=== PATIENT | female | born 1950 | race Caucasian/White ===

== ENCOUNTER 2017-04-11 08:47 | Outpatient (CLI) | payer MEDICARE, OTHER ==
--- NOTE | 2017-04-11 10:45 | CT ---
CT ABDOMEN WITH AND WITHOUT IV CONTRAST CT PELVIS WITH IV CONTRAST: Date: 04/11/17 HISTORY: Cirrhosis. Abdominal pain. Nausea, vomiting, and diarrhea. FINDINGS: Lung bases are clear. There are postop changes of cholecystectomy and vertical sleeve gastrectomy. Th e spleen, pancreas, adrenal glands, and right kidney are normal. A 2.6 cm cortical cyst is seen in th e left kidney. The liver demonstrates no evidence of mass or abnormal intrahepatic ductal dilatation. There is no ev idence of fatty infiltration of the liver. No free air, free fluid, or lymphadenopathy is seen in the abdomen or pelvis. There are vascular calc ifications without evidence of aneurysmal dilatation of the abdominal aorta. Degenerative changes are present in the spine. The small bowel loops are not abnormally dilated. There is sigmoid diverticulo sis. The patient is post hysterectomy. IMPRESSION: 1. No evidence of hepatic mass. 2. Left renal cyst. 3. Sigmoid diverticulosis. POS: [facility]
[2017-04-11] MEDS ORDERED: Iopamidol 370 76% 100 ML VIAL ONE (13:14)
== END 2017-04-11 08:48 | disposition home or self-care (01) ==
LOC: CT 08:47
PROVIDERS: ATTEND Internal Medicine Gastroenterology
DX: K74.60 Unspecified cirrhosis of liver (principal); N28.1 Cyst of kidney, acquired; K57.30 Diverticulosis of large intestine without perforation or abscess without bleeding
CPT/HCPCS: 74178

== ENCOUNTER 2017-07-25 19:13 | Emergency (ER) | payer MEDICARE, OTHER ==
[2017-07-25] MEDS ORDERED: Acetaminophen 325 MG TAB ONE (20:08)
[2017-07-25 20:21] LABS: Bilirubin Small (Negative); Blood, Urine Small (Negative); Leukocyte Trace (Negative); Nitrite Positive (Negative); Protein, Urine (Dipstick) > or equal to 300 mg/dL (Neg-Trace)
[2017-07-25 20:22] LABS: Clarity Clear (Clear)
[2017-07-25 20:23] LABS: Specific Gravity, Urine 1.015 (1.002-1.036)
[2017-07-25 20:24] LABS: Glucose, Urine (Dipstick) 100 mg/dL (Negative)
[2017-07-25 20:26] LABS: Hyaline Casts/LPF 0-3 HYALINE CAST LPF (0-3 Hyaline); Pathc Cast-AUWi Flag 0.29 (0-2.49); Squamous Epithelial 0-3 HPF (0-3)
[2017-07-25 20:32] LABS: Bacteria/HPF 4+ HPF (None Seen)
[2017-07-25 21:59] LABS: #Eosinphils 0.2 thou/uL (0.0-0.7); #Lymphocytes 0.7 thou/uL (1.20-3.40); #Monocytes 0.3 thou/uL (0.11-0.59); #Neutrophils 6.1 thou/uL (1.40-6.50); %Basophils 0.4 % (0.0-1.0); %Eosinophils 2.2 % (0.0-10.0); %Lymphocytes 9.8 % (21.0-51.0); %Monocytes 4.4 % (0.0-10.0); %Neutrophils 83.1 % (42.0-75.0); Hemoglobin 12.1 g/dL (12.0-16.0); Mean Corpuscular HGB CONC 35.7 g/dL (32.0-36.0); Mean Corpuscular Hemoglobin 33.3 pg (27.0-31.0); Mean Platelet Volume 8.4 fL (7.4-10.4); Platelet Count 153 thou/uL (130-400); RBC Distribution Width 12.3 % (11.5-14.5); Red Blood Cell (RBC) Count 3.65 mill/uL (4.20-5.40); White Blood Cell (WBC) Count 7.4 thou/uL (4.8-10.8)
[2017-07-25 22:23] LABS: ALT (SGPT) 20 U/L (8-55); AST (SGOT) 22 U/L (5-34); Albumin 3.8 g/dL (3.4-4.8); Alkaline Phosphatase 61 U/L (40-150); Anion Gap 11 mmol/L (10-20); BUN (Urea Nitrogen) 25 mg/dL (9.8-20.1); Bilirubin, Total 0.5 mg/dL (0.2-1.2); Calc. Creatinine Clearance 0 mL/min (70-130); Calcium 9.4 mg/dL (7.8-10.44); Carbon Dioxide 24 mmol/L (23-31); Chloride 106 mmol/L (98-107); Estimated GFR-MDRD 28; Globulin 3.8 g/dL (2.4-3.5); Glucose 153 mg/dL (80-115); Magnesium 1.8 mg/dL (1.6-2.6); Potassium 3.4 mmol/L (3.5-5.1); Protein, Total 7.6 g/dL (6.0-8.3); Sodium 138 mmol/L (136-145)
--- NOTE | 2017-07-25 22:28 | RAD ---
AP PORTABLE VIEW CHEST: 07/25/17 HISTORY: Chest pain. Difficulty breathing. Tachycardia. AP view chest is obtained. Comparison made to previous exam from 11/18/16. AP view chest demonstrates the lungs to be well aerated. No evidence of active intrathoracic disease seen. No evidence of effusions, pneumonia, or pneumothorax seen. IMPRESSION: Unremarkable AP view chest. POS: [facility]
[2017-07-25 22:33] LABS: CKMB 0.9 ng/mL (0-6.6); Troponin I Less than 0.010 ng/mL (< 0.028)
[2017-07-25] MEDS ORDERED: Sulfameth/Trimethoprim DS 800-160mg TAB ONE (23:03)
== END 2017-07-26 00:04 | disposition home or self-care (01) ==
LOC: ERS 19:13
DX: N30.01 Acute cystitis with hematuria (principal); E03.9 Hypothyroidism, unspecified; I10 Essential (primary) hypertension; E11.9 Type 2 diabetes mellitus without complications; F41.9 Anxiety disorder, unspecified; Z79.899 Other long term (current) drug therapy; Z79.4 Long term (current) use of insulin; Z79.82 Long term (current) use of aspirin; R30.9 Painful micturition, unspecified
CPT/HCPCS: 36415; 71045; 80053; 81003; 81015; 82553; 83605; 83735; 84484; 85025; 87040; 87077; 87086; 87186; 93005; 96361; 96374; J1956

== ENCOUNTER 2017-10-02 22:19 | Emergency (ER) | payer MEDICARE, OTHER ==
--- NOTE | 2017-10-02 23:11 | RAD ---
RIGHT KNEE FOUR VIEWS: 10/02/17 HISTORY: Fall. Pain. COMPARISON: None. FINDINGS: There is a right knee arthroplasty without evidence of complication or loosening. No significant join t effusion. No acute fractures. Extensive vascular calcifications are noted. Significant calcified pl aque in the popliteal artery is identified. IMPRESSION: No fracture. Uncomplicated right knee arthroplasty. POS: [facility]
--- NOTE | 2017-10-02 23:13 | RAD ---
RIGHT ANKLE THREE VIEWS: 10/02/17 COMPARISON: 12/31/04. HISTORY: Fall. Pain. Injury. FINDINGS: There is soft tissue swelling. There is bone demineralization. There are chronic changes involving th e talocalcaneal articulation. There appears to be fusion of the subtalar joint. Extensive internal fi xation hardware/fusion hardware is identified. There is also fusion hardware in the midfoot. Acute f ractures are not appreciated. IMPRESSION: Fusion changes involving the foot. No definite acute fractures. There is soft tissue swelling, greate st on the lateral aspect. If there is pain or point tenderness, immobilization and followup imaging i n 7 to 10 days. POS: [facility]
--- NOTE | 2017-10-02 23:18 | RAD ---
RIGHT FOOT THREE VIEWS: 10/02/17 HISTORY: Fall. Pain. FINDINGS: There is extensive fusion change/internal fixation hardware placement in the midfoot and hindfoot. No definite perihardware lucency. An acute fracture is not appreciated. Lisfranc alignment appears to b e maintained. Mild loss of joint space height in the first interphalangeal joint space. 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 Flattening of the calcaneus and talus are noted. IMPRESSION: No fracture. POS: [facility]
== END 2017-10-02 23:37 | disposition home or self-care (01) ==
LOC: ERS 22:19
DX: S93.401A Sprain of unspecified ligament of right ankle, initial encounter (principal); S80.01XA Contusion of right knee, initial encounter; S50.312A Abrasion of left elbow, initial encounter; S50.311A Abrasion of right elbow, initial encounter; I10 Essential (primary) hypertension; E11.9 Type 2 diabetes mellitus without complications; F41.9 Anxiety disorder, unspecified; E66.9 Obesity, unspecified; M06.9 Rheumatoid arthritis, unspecified; Z79.82 Long term (current) use of aspirin; Z79.4 Long term (current) use of insulin; Z79.899 Other long term (current) drug therapy; W01.0XXA Fall on same level from slipping, tripping and stumbling without subsequent striking against object, initial encounter

== ENCOUNTER 2017-11-26 08:56 | Outpatient (CLI) | payer MEDICARE, OTHER | END 2017-11-26 08:57 | disposition home or self-care (01) | LOC: BICULT 08:56 | PROVIDERS: ATTEND Internal Medicine Gastroenterology | DX: K74.60 Unspecified cirrhosis of liver (principal); D64.9 Anemia, unspecified | CPT/HCPCS: 76705 ==

== ENCOUNTER 2018-04-08 12:31 | Outpatient (CLI) | payer MEDICARE, OTHER ==
[2018-04-08] MEDS ORDERED: ISOVUE-370 76%-LOCM 1 ML ONE (13:32)
--- NOTE | 2018-04-08 14:48 | CT ---
CT ABDOMEN AND PELVIS WITH IV CONTRAST: Date: 04/08/18 HISTORY: Left lower quadrant abdominal pain, diarrhea, cirrhosis. COMPARISON: 04/11/17. FINDINGS: Coronary artery calcifications, as well as vascular calcifications involving the abdominal aorta. There is persistent mild linear area of scarring at medial right lung base. Postsurgical changes related to cholecystectomy are noted, as well as stable postsurgical changes rel ated to prior gastric sleeve procedure. There is a 2.2 cm fluid attenuation lesion within the mid portion of the left kidney compatible with a cyst, stable from prior exam. The liver, spleen, pancreas, bilateral adrenal glands, right kidney, and incompletely distended urina ry bladder demonstrate a normal CT appearance. There is colonic diverticulosis involving the descending and sigmoid colon with mild colonic wall thi ckening involving the proximal sigmoid colon with what appears to be mild adjacent inflammatory stran ding. Findings are worrisome for diverticulitis. There is no free intraperitoneal gas seen and no adj acent fluid collection is seen to suggest an abscess. There is a low density area seen within the cecal apex measuring approximately 3.3 cm. While this cou ld be related to an area of retained fecal material, this is asymmetric compared to additional adjace nt areas, and this may represent focal cecal mass. Follow-up evaluation versus colonoscopy is recomme nded. There is evidence of prior hysterectomy. There is a small, 1.5 cm, low density nodule seen within the right hemipelvis which may represent a mildly enlarged lymph node. This is just superior to a promin ent calcification in the right hemipelvis, likely related to phlebolith. This low density focus was p resent on study of 04/11/17 as well. Degenerative changes are again seen in the spine. IMPRESSION: 1. Findings worrisome for possible mass in the region of the cecal apex. Short interval follow-up ex amination with GI contrast is recommended versus colonoscopy for further evaluation to exclude the po ssibility of a cecal mass. 2. Diverticulitis involving the proximal sigmoid colon. 3. Nonspecific mildly prominent lymph node right lateral pelvis. 4. Postsurgical changes related to cholecystectomy, as well as prior gastric bypass procedure, and h ysterectomy. Above findings were discussed with Dr. Ming Llanos's nurse, on 04/08/18 at 1337 hours. CODE CR.
== END 2018-04-08 12:32 | disposition home or self-care (01) ==
LOC: BICCT 12:31
PROVIDERS: ATTEND Internal Medicine Gastroenterology
DX: K74.60 Unspecified cirrhosis of liver (principal); R10.32 Left lower quadrant pain; K52.9 Noninfective gastroenteritis and colitis, unspecified; K57.32 Diverticulitis of large intestine without perforation or abscess without bleeding; Z90.49 Acquired absence of other specified parts of digestive tract; Z90.710 Acquired absence of both cervix and uterus
CPT/HCPCS: 74177; 82565; Q9966

== ENCOUNTER 2018-06-17 18:58 | Emergency (ER) | payer MEDICARE, OTHER ==
--- NOTE | 2018-06-20 14:36 | EKG ---
Test Reason : HIGHBP Blood Pressure : / mmHG Vent. Rate : 077 BPM Atrial Rate : 077 BPM P-R Int : 166 ms QRS Dur : 092 ms QT Int : 404 ms P-R-T Axes : 054 -08 034 degrees QTc Int : 457 ms Normal sinus rhythm Moderate voltage criteria for LVH, may be normal variant Cannot rule out Septal infarct , age undetermined Abnormal ECG Confirmed by MIGUEL FRYE ([id number]), acquisitions editor INDRA RODRIGUEZ ([id number]) on 06/20/2018 2:35:48 PM Referred By: Confirmed By:MIGUEL FRYE
== END 2018-06-17 20:25 | disposition home or self-care (01) ==
LOC: ERS 18:58
DX: I10 Essential (primary) hypertension (principal); E03.9 Hypothyroidism, unspecified; E11.9 Type 2 diabetes mellitus without complications; E66.9 Obesity, unspecified; M06.9 Rheumatoid arthritis, unspecified; F41.9 Anxiety disorder, unspecified; Z79.82 Long term (current) use of aspirin; Z79.4 Long term (current) use of insulin; Z79.899 Other long term (current) drug therapy
CPT/HCPCS: 93005

== ENCOUNTER 2018-06-22 14:09 | Outpatient (CLI) | payer MEDICARE, OTHER ==
[2018-06-22 17:10] LABS: #Basophils 0.1 thou/uL (0.0-0.2); #Eosinphils 0.2 thou/uL (0.0-0.7); #Lymphocytes 2.1 thou/uL (1.20-3.40); #Monocytes 0.4 thou/uL (0.11-0.59); #Neutrophils 2.8 thou/uL (1.40-6.50); %Basophils 1.3 % (0.0-1.0); %Eosinophils 3.9 % (0.0-10.0); %Monocytes 7.9 % (0.0-10.0); %Neutrophils 49.9 % (42.0-75.0); Hemoglobin 10.5 g/dL (12.0-16.0); Platelet Count 153 thou/uL (130-400); RBC Distribution Width 12.9 % (11.5-14.5); Red Blood Cell (RBC) Count 3.38 mill/uL (4.20-5.40); White Blood Cell (WBC) Count 5.6 thou/uL (4.8-10.8)
--- NOTE | 2018-06-22 17:12 | RAD ---
XR Chest Pa Lat STANDARD HISTORY: Preop COMPARISON: 04/15/2017 study FINDINGS: Heart size and mediastinum are within normal limits. The lungs are clear of infiltrates. Th ere are arthritic changes of the spine. IMPRESSION: No active intrathoracic disease.
[2018-06-22 17:34] LABS: ALT (SGPT) 15 U/L (8-55); AST (SGOT) 21 U/L (5-34); Albumin 3.8 g/dL (3.4-4.8); Alkaline Phosphatase 61 U/L (40-150); Anion Gap 12 mmol/L (10-20); BUN (Urea Nitrogen) 37 mg/dL (9.8-20.1); Bilirubin, Total 0.3 mg/dL (0.2-1.2); Calc. Creatinine Clearance 0 mL/min (70-130); Calcium 9.5 mg/dL (7.8-10.44); Carbon Dioxide 25 mmol/L (23-31); Chloride 105 mmol/L (98-107); Estimated GFR-MDRD 20; Globulin 3.6 g/dL (2.4-3.5); Glucose 61 mg/dL (80-115); Potassium 3.7 mmol/L (3.5-5.1); Protein, Total 7.4 g/dL (6.0-8.3); Sodium 138 mmol/L (136-145)
== END 2018-06-22 14:10 | disposition home or self-care (01) ==
LOC: LABBT 14:09
PROVIDERS: ATTEND Internal Medicine Cardiovascular Disease
DX: Z01.818 Encounter for other preprocedural examination (principal)
CPT/HCPCS: 71046; 80053; 85025; 93005; 93010

== ENCOUNTER 2018-07-08 14:39 | Inpatient (IN) | payer MEDICARE, OTHER ==
[2018-07-08 15:45] LABS: #Eosinphils 0.2 thou/uL (0.0-0.7); #Lymphocytes 1.3 thou/uL (1.20-3.40); #Monocytes 0.4 thou/uL (0.11-0.59); %Basophils 0.9 % (0.0-1.0); %Eosinophils 3.9 % (0.0-10.0); %Lymphocytes 26.4 % (21.0-51.0); %Monocytes 8.5 % (0.0-10.0); %Neutrophils 60.4 % (42.0-75.0); Hemoglobin 10.8 g/dL (12.0-16.0); Mean Corpuscular HGB CONC 33.9 g/dL (32.0-36.0); Mean Corpuscular Hemoglobin 31.8 pg (27.0-31.0); Mean Corpuscular Volume 93.8 fL (78.0-98.0); Mean Platelet Volume 8.2 fL (7.4-10.4); Platelet Count 159 thou/uL (130-400); RBC Distribution Width 12.7 % (11.5-14.5); Red Blood Cell (RBC) Count 3.41 mill/uL (4.20-5.40)
[2018-07-08 16:08] LABS: Bilirubin Negative (Negative); Blood, Urine Negative (Negative); Clarity CLEAR (Clear); Glucose, Urine (Dipstick) Negative (Negative); Leukocyte Trace (Negative); Nitrite Negative (Negative); Protein, Urine (Dipstick) 100 mg/dL (Neg-Trace); Specific Gravity, Urine 1.018 (1.002-1.036); Urobilinogen 0.2 mg/dL (0.2-1.0)
[2018-07-08 16:09] LABS: ALT (SGPT) 60 U/L (8-55); AST (SGOT) 73 U/L (5-34); Albumin 3.9 g/dL (3.4-4.8); Alkaline Phosphatase 59 U/L (40-150); Anion Gap 11 mmol/L (10-20); BUN (Urea Nitrogen) 37 mg/dL (9.8-20.1); Bilirubin, Total 0.2 mg/dL (0.2-1.2); Calc. Creatinine Clearance 0 mL/min (70-130); Calcium 9.3 mg/dL (7.8-10.44); Carbon Dioxide 22 mmol/L (23-31); Chloride 107 mmol/L (98-107); Estimated GFR-MDRD 16; Globulin 3.7 g/dL (2.4-3.5); Glucose 179 mg/dL (80-115); Potassium 4.3 mmol/L (3.5-5.1); Protein, Total 7.6 g/dL (6.0-8.3); Sodium 136 mmol/L (136-145)
[2018-07-08 16:11] LABS: Bacteria/HPF None Seen HPF (None Seen); Hyaline Casts/LPF 0-3 HYALINE CAST LPF (0-3 Hyaline); Pathc Cast-AUWi Flag 0.27 (0-2.49); Squamous Epithelial 0-3 HPF (0-3); WBC/HPF 0-3 HPF (0-3)
--- NOTE | 2018-07-08 18:03 | CT ---
CT abdomen noncontrast CT pelvis noncontrast: (Urolithiasis protocol) DATE: 07/08/2018 HISTORY: 68-year-old female with right flank pain COMPARISON: 04/08/2018 TECHNIQUE: IV injection of iodinated contrast media: None Oral contrast media: None FINDINGS: Other than for urolithiasis, the lack of IV and oral contrast limits the evaluation. 2.5 cm cyst at left renal midpole anteriorly, unchanged. No hydronephrosis bilaterally. No renal, ure teral, or bladder calculus. Bilateral kidneys are slightly small. No major pathology of liver, pancreas, adrenals, or spleen. No abdominal aortic aneurysm. Multiple diverticula throughout the desc ending and sigmoid colon without diverticulitis. Suture lines along narrowed gastric channel. Cholecystectomy clips. No ascites or pneumoperitoneum. No small bowel dilation. Normal appendix. With out oral contrast, it is difficult to evaluate for the cecal lesion mentioned on the prior report. However, there is stool and gas in this location, suggesting that there is no neoplasm here. However, there does appear to be pneumatosis of the cecum, a new finding. IMPRESSION: 1) a new finding of pneumatosis of the cecum. There are many possible causes of pneumatosis, includin g both benign and acutely serious conditions. 2) no urolithiasis or obstructive uropathy. 3) status post bariatric surgery and cholecystectomy.
[2018-07-08] MEDS ORDERED: Meropenem 2 GM in Sodium Chloride 0.9% 100 ML IVPB ONE (19:00)
[2018-07-08] MEDS ORDERED: Dextrose 5% in Water 1,000 ML IV PRN (21:27)
[2018-07-08] MEDS ORDERED: Dextrose 50% Abboject 50 ML SYRINGE SLOW IVP PRN (21:27)
[2018-07-08] MEDS ORDERED: Ondansetron PF 4 MG/2 ML Vial IVP PRN (21:27)
[2018-07-08] MEDS ORDERED: Bisacodyl 10 MG SUPP PR PRN (21:27)
[2018-07-08] MEDS: Sodium Chloride 0.9% 1,000 ML IV SCH (22:25)
[2018-07-08] MEDS ORDERED: Ciprofloxacin Lactate/D5W 200 MG in Premix Bag 1 BAG IVPB SCH (22:45)
[2018-07-08] MEDS ORDERED: Heparin 5,000 UNITS/ML VIAL SC SCH (22:45)
[2018-07-08] MEDS ORDERED: Aspirin Chewable 81 MG TAB PO SCH (22:45)
[2018-07-08] MEDS ORDERED: Ascorbic Acid 500 mg Chewable Tablet PO SCH (22:45)
[2018-07-08] MEDS ORDERED: Carvedilol 6.25 MG TAB PO SCH (22:45)
[2018-07-08] MEDS ORDERED: Atorvastatin Calcium 20 MG TAB PO SCH (22:45)
[2018-07-08] MEDS ORDERED: cloNIDine 0.1 MG TAB PO SCH (22:45)
[2018-07-08] MEDS: METRONIDAZOLE IVPB SCH (23:17)
[2018-07-08 23:58] VITALS: BMI 34.0
--- NOTE | 2018-07-09 01:47 | CON ---
DATE OF CONSULTATION: CHIEF COMPLAINT: Right lower quadrant abdominal pain. HISTORY OF PRESENT ILLNESS: The patient is a 68-year-old female with a 6-day history that started as right back pain like a knife. She felt like previous kidney stone she had. She was initially diagnosed to have a urinary tract infection, started on Bactrim. By Friday, the cultures grew out yeast and she was switched to Diflucan, but she never took it. Last night, the pain got much worse and this morning continued, so she came to the emergency room. She states she is having a lot of nausea, but no vomiting. She is having chills, but no fever. She has had severe diarrhea for the last 3-4 months. She has had a colonoscopy about a month ago, they a few polyps up, but have not figured out what is causing the diarrhea. They also did an EGD. PAST MEDICAL HISTORY: Significant for diabetes, history of hepatitis C, history of cirrhosis due to hepatitis C, anemia, kidney stones, hypertension. She also had an abnormal stress test and was due for cardiac cath, but because of her worsening kidney function that was postponed. PAST SURGICAL HISTORY: Includes right foot surgery, bilateral total knee surgery, left foot surgery, total abdominal hysterectomy, open cholecystectomy, ectopic , and a sleeve gastrectomy 8 years ago. She has also had 2 previous cardiac stents placed. MEDICATIONS: Include 1. Thyroxine 100 daily. 2. Prozac 40 daily. 3. Allopurinol 300 daily. 4. daily. 5. Clonidine 0.1 b.i.d. 6. Carvedilol 20 mg daily. 7. Irbesartan one daily. 8. Aspirin daily. 9. Humalog pump. 10. Victoza every 6 months. ALLERGIES: ALLERGY TO PENICILLIN, TETRACYCLINE, ERYTHROMYCIN. SOCIAL HISTORY: She is . Retired. No tobacco. FAMILY HISTORY: Heart disease. PHYSICAL EXAMINATION: VITAL SIGNS: Temperature, she is afebrile. Pulse 78, 99% saturation. GENERAL: She is awake, alert, in no apparent distress. HEENT: Unremarkable. LUNGS: Clear. HEART: Regular rate and rhythm. ABDOMEN: Obese, soft, tender in the right lower quadrant. She has multiple well-healed surgical scars. EXTREMITIES: Unremarkable. LABORATORY DATA: White count is 5, H and H 10 and 32, platelet count of 159. Electrolytes show AST elevated at 73, ALT at 60. Creatinine is 2.86, BUN of 37, CO2 of 22. Urinalysis shows 0 to [address] of the abdomen and pelvis shows 2.5 cm left renal cyst. Pneumatosis coli of the cecum. ASSESSMENT: Typhlitis/pneumatosis colitis. PLAN: Recommended admission to medical service, GI consultation, IV antibiotics, bowel rest. She may have ice chips. If things progress, there is a possibility of surgery, but most of the time this will respond to the antibiotics. Job ID: [id number]
[2018-07-09] MEDS: METRONIDAZOLE IVPB SCH ×3 (05:53→23:07)
[2018-07-09] MEDS: Levothyroxine Sodium 100 MCG TAB PO SCH (05:53)
[2018-07-09 06:42] LABS: #Eosinphils 0.2 thou/uL (0.0-0.7); #Lymphocytes 1.5 thou/uL (1.20-3.40); #Monocytes 0.4 thou/uL (0.11-0.59); #Neutrophils 1.9 thou/uL (1.40-6.50); %Basophils 0.9 % (0.0-1.0); %Eosinophils 3.9 % (0.0-10.0); %Lymphocytes 36.8 % (21.0-51.0); %Monocytes 9.8 % (0.0-10.0); %Neutrophils 48.6 % (42.0-75.0); Hemoglobin 9.6 g/dL (12.0-16.0); Mean Corpuscular HGB CONC 33.8 g/dL (32.0-36.0); Mean Corpuscular Volume 91.8 fL (78.0-98.0); Mean Platelet Volume 8.4 fL (7.4-10.4); Platelet Count 131 thou/uL (130-400); RBC Distribution Width 12.7 % (11.5-14.5); Red Blood Cell (RBC) Count 3.11 mill/uL (4.20-5.40); White Blood Cell (WBC) Count 3.9 thou/uL (4.8-10.8)
[2018-07-09 07:07] LABS: ALT (SGPT) 54 U/L (8-55); AST (SGOT) 59 U/L (5-34); Albumin 3.5 g/dL (3.4-4.8); Alkaline Phosphatase 58 U/L (40-150); Anion Gap 13 mmol/L (10-20); BUN (Urea Nitrogen) 33 mg/dL (9.8-20.1); Bilirubin, Total 0.3 mg/dL (0.2-1.2); Calc. Creatinine Clearance 33 mL/min (70-130); Calcium 8.3 mg/dL (7.8-10.44); Carbon Dioxide 22 mmol/L (23-31); Chloride 108 mmol/L (98-107); Estimated GFR-MDRD 18; Glucose 197 mg/dL (80-115); Lipase 42 U/L (8-78); Potassium 4.9 mmol/L (3.5-5.1); Protein, Total 6.5 g/dL (6.0-8.3); Sodium 138 mmol/L (136-145)
[2018-07-09] MEDS ORDERED: Famotidine/PF 20 mg/2ml Vial SLOW IVP SCH (09:00)
[2018-07-09] MEDS: Heparin 5,000 UNITS/ML VIAL SC SCH ×2 (09:01→21:07)
[2018-07-09] MEDS: Famotidine/PF 20 mg/2ml Vial SLOW IVP SCH (09:01)
[2018-07-09] MEDS: Allopurinol 300 MG TAB PO SCH ×2 (09:02→16:30)
[2018-07-09] MEDS: Ascorbic Acid 500 mg Chewable Tablet PO SCH ×2 (09:03→16:29)
[2018-07-09] MEDS: FLUoxetine HCl 20 MG CAP PO SCH ×2 (09:03→16:30)
[2018-07-09] MEDS: Carvedilol 6.25 MG TAB PO SCH ×2 (09:03→21:04)
[2018-07-09] MEDS: Ciprofloxacin Lactate/D5W 200 MG in Premix Bag 1 BAG IVPB SCH ×2 (09:10→21:05)
--- NOTE | 2018-07-09 09:20 | HP ---
PRIMARY CARE PHYSICIAN: Dr. Rufus Dior. REASON FOR ADMISSION: Pneumatosis of cecum. HISTORY OF PRESENT ILLNESS: This is a 68-year-old female, who has underlying history of diabetes with diabetic nephropathy, who came to emergency room this afternoon with complaint of flank pain. She was predominantly reporting pain in the right lower quadrant, which was radiating to back. She was feeling as if renal stone as she had a similar type of pain when she had a kidney stone. The patient has chronic kidney disease after cardiac catheterization when she had gastric surgery, and she is following Dr. Garzon. She is supposed to see Dr. Garzon tomorrow. She is not able to get cardiac catheterization because of her kidney problem. She does have chronic diarrhea. She denies any change in bowel movement or urinary symptoms. Today, in the emergency room, she had a CT of abdomen and pelvis, which showed pneumatosis of cecum which is new finding. There was no obstructive uropathy. In the emergency room, the patient was given meropenem, dextrose fluid, morphine 4 mg, and IV fluid. Subsequently, she is admitted to surgical floor. REVIEW OF SYSTEMS: CONSTITUTIONAL: Negative for weight loss or gain, ability to conduct usual activities. SKIN: Negative for rash, itching. EYES: Negative for double vision, pain. ENT/MOUTH: Negative for nose bleeding, neck stiffness, pain, tenderness. CARDIOVASCULAR: Negative for palpitations, dyspnea on exertion, orthopnea. RESPIRATORY: Negative for shortness of breath, wheezing, cough, hemoptysis, fever or night sweats. GASTROINTESTINAL: Negative for poor appetite, abdominal pain, heartburn, nausea, vomiting, constipation, or diarrhea. GENITOURINARY: Negative for urgency, frequency, dysuria, nocturia. MUSCULOSKELETAL: Negative for pain, swelling. NEUROLOGIC/PSYCHIATRIC: Negative for anxiety, depression. ALLERGY/IMMUNOLOGIC: Negative for skin rash, bleeding tendency. Please see my HPI for pertinent positive and negative. All other review of systems reviewed and negative except as mentioned in HPI. PAST MEDICAL HISTORY: Diabetes type 2, on insulin pump; coronary artery disease , treated with stent in the past; hepatitis C; hypothyroidism; dyslipidemia; history of nephrolithiasis; chronic kidney disease, stage 4; diabetic nephropathy; fibromyalgia; and rheumatoid arthritis. PAST SURGICAL HISTORY: Ectopic , cholecystectomy, gastric bypass surgery with gastric sleeve, hysterectomy, bilateral knee replacement, right foot surgery, and foot tendon repair. PAST PSYCHIATRIC HISTORY: Anxiety and depression. SOCIAL HISTORY: The patient is , lives at home with her . No history of tobacco, alcohol, or illicit drug abuse. FAMILY HISTORY: No family history of coronary artery disease, stroke, or cancer. ALLERGIES: ERYTHROMYCIN, PENICILLIN, AND TETRACYCLINE. CURRENT HOME MEDICATIONS: 1. Abatacept 250 mg IV every month. 2. Allopurinol 300 mg p.o. daily. 3. Vitamin C 750 mg b.i.d. 4. Aspirin 81 mg daily. 5. Calcium with vitamin D3 one tablet twice daily. 6. Coreg CR 20 mg at bedtime. 7. Vitamin D3 of 6000 units p.o. b.i.d. 8. Catapres 0.1 mg at bedtime. 9. Prozac 40 mg daily. 10. Humalog insulin pump. 11. Irbesartan 150 mg p.o. at bedtime. 12. Levothyroxine 100 mcg daily. 13. Victoza 1.6 mg subcu daily. 14. Multivitamin 1 tablet daily. 15. Pravastatin 80 mg daily. PHYSICAL EXAMINATION: VITAL SIGNS: On arrival, blood pressure 145/82, pulse 73, respiratory rate 18, temperature 97.8, and saturation 99% on room air. Weight 101.6 kg. GENERAL: The patient is currently alert and oriented x3. No acute distress. HEENT: Head; normocephalic, atraumatic. Eyes; pupils round and reactive to light , extraocular muscle intact. ENT; oropharynx within normal limits. Moist mucous membranes. No oral lesion. No pharyngeal erythema. No exudate. NECK: Supple. No JVD. No thyromegaly. No carotid bruit. No jugular venous distention. LUNGS: Clear to auscultation without any rhonchi or rales. CARDIAC: S1 and S2 regular. No murmur. No gallop. No rub. ABDOMEN: Right lower quadrant tenderness noted. No peritoneal sign. No rebound. No rigidity. Bowel sounds present. EXTREMITIES: No edema. Good distal pulsation. SKIN: No skin rash. HEMATOLOGIC: No lymphadenopathy. NEUROLOGIC: Nonfocal examination. SIGNIFICANT LABORATORY DATA: CT of abdomen and pelvis showing pneumatosis of cecum, diverticulosis. CBC; WBC 5.0, hemoglobin 10.8, and platelets 159. Sodium 136, potassium 4.3, BUN 37, creatinine 2.86, glucose 179, and calcium 9.3. Lactic acid 0.9. LFT; AST 73, ALT 60, albumin 3.9. Lipase 53. Urinalysis unremarkable. ASSESSMENT AND PLAN: 1. Pneumatosis of cecum, rule out infectious etiology with stool study and consult Gastroenterology and start empiric Cipro and Flagyl as per renal dose and continue gentle IV fluid. Keep n.p.o. except medication. 2. Hypoglycemia with diabetes type 2. The patient is on insulin pump. We will hold on insulin pump for now because n.p.o. status. We will use insulin as per sliding scale for now and watch for hypoglycemia. 3. Acute on chronic kidney failure. The patient will be given gentle IV fluid and we will repeat BMP tomorrow. This is related with diabetic nephropathy. 4. Anemia of renal disease. Procrit as needed basis. Nephrology will follow up with the patient as an outpatient basis. 5. Rheumatoid arthritis. Continue Betasept as per home dosage after discharge. 6. Hyperuricemia. Continue allopurinol 300 mg daily. 7. Coronary artery disease. Continue aspirin 81 mg daily, Coreg CR 20 mg p.o. at bedtime. 8. Hypertension. Continue clonidine 0.1 mg at bedtime and irbesartan 150 mg at bedtime. 9. Dyslipidemia. Continue pravastatin 80 mg p.o. at bedtime. 10. Deep venous thrombosis prophylaxis. Heparin 5000 units subcu twice daily. 11. Gastrointestinal prophylaxis. Pepcid 20 mg IV daily. CODE STATUS: The patient is full code. The patient's is surrogate decision maker. DISPOSITION PLAN: Based on clinical course and Gastroenterology's recommendation. Job ID: [id number] MTDD
[2018-07-09] MEDS: Sodium Chloride 0.9% 1,000 ML IV SCH ×5 (11:52→18:49)
--- NOTE | 2018-07-09 15:42 | PDOC.PN ---
- Subjective Encounter Start Date: 07/09/18 Encounter Start Time: 15:38 Patient lying in bed with family member at bedside. She reports pain improved at rest, but present with movement or ambulation. She denies chest pain, shortness of breath, n/v. She continues NPO and IV abx. - Objective Resuscitation Status - Order Detail: 07/08/18 21:27 Resuscitation Status Routine Resuscitation Status: FULL: Full Resuscitation MAR Reviewed: Yes Vital Signs & Weight: Vital Signs (12 hours) Temp Pulse Resp BP BP Pulse Ox 07/09/18 11:54 98.5 F 69 18 153/84 H 97 07/09/18 09:05 98.9 F 77 18 137/84 98 07/09/18 09:03 137/84 07/09/18 08:32 98.4 F 77 18 137/84 95 07/09/18 04:20 97.4 F L 74 16 129/68 97 Weight Weight 224 lb I&O: 07/08/18 07/09/18 07/10/18 06:59 06:59 06:59 Intake Total 1140 Balance 1140 Result Diagrams: 07/09/18 06:15 07/09/18 06:15 Additional Labs: Accuchecks 07/09/18 07/09/18 07/08/18 10:45 06:03 21:56 POC Glucose 222 H 223 H 70 Radiology Reviewed by me: Yes Phys Exam - Physical Examination HEENT: moist MMs, oral pharynx no lesions Neck: supple Respiratory: no wheezing, clear to auscultation bilateral Cardiovascular: RRR, no rub Gastrointestinal: soft, positive bowel sounds tenderness to palpation on right side abdominal Musculoskeletal: pulses present Neurological: non-focal, moves all 4 limbs Lymphatic: no nodes Psychiatric: normal affect, A&O x 3 Skin: normal turgor, cap refill <2 seconds Dx/Plan (1) Pneumatosis intestinalis of large intestine Code(s): K63.89 - OTHER SPECIFIED DISEASES OF INTESTINE Status: Acute (2) CKD (chronic kidney disease), stage III Code(s): N18.3 - CHRONIC KIDNEY DISEASE, STAGE 3 (MODERATE) Status: Chronic (3) Diabetes type 2, controlled Code(s): E11.9 - TYPE 2 DIABETES MELLITUS WITHOUT COMPLICATIONS Status: Chronic (4) Hypothyroidism Code(s): E03.9 - HYPOTHYROIDISM, UNSPECIFIED Status: Chronic (5) Obesity (BMI 30-39.9) Code(s): E66.9 - OBESITY, UNSPECIFIED Status: Chronic (6) Hypertension Code(s): I10 - ESSENTIAL (PRIMARY) HYPERTENSION Status: Acute - Plan cont current plan of care, plan discussed w/ family, continue antibiotics * Continue NPO and IV fluids with IV abx * GI and gen surgery following * Continue symptomatic and supportive care * Recheck CBC and BMP in am * Vitals stable
[2018-07-09] MEDS: HumaLOG 300 UNITS/3 ML VIAL SC PRN ×2 (16:31→21:06)
--- NOTE | 2018-07-09 16:52 | CON ---
DATE OF CONSULTATION: 07/09/2018 REASON FOR CONSULTATION: Right lower quadrant abdominal pain, abnormal GI imaging. CONSULTING PROVIDER: Dr. Carl Curry. HISTORY OF PRESENT ILLNESS: The patient is a 68-year-old female with past medical history of diabetes with nephropathy, coronary artery disease, nephrolithiasis, fibromyalgia, rheumatoid arthritis, hypothyroidism, hyperlipidemia, chronic kidney disease stage 4, and chronic hepatitis C infection with resultant cirrhosis, presenting with complaints of right lower quadrant abdominal pain and diarrhea. Concerning her abdominal pain, she states that she has been having increased right upper back and right lower quadrant abdominal pain that has been present for approximately the last week. She was seen by her primary care physician as an outpatient for this particular condition and placed on Bactrim for presumptive diagnosis of urinary tract infection/nephrolithiasis. However, the right lower quadrant abdominal pain did not kael despite this treatment, which then prompted her to seek healthcare admission. The right lower quadrant abdominal pain is characterized as a sharp/stabbing type sensation, will radiate to the periumbilical region and right mid abdomen/flank, is constant with waxing/waning severity and reaches a severity of approximately 8 to 10/10. The pain is worse with any physical movement and better with the application of heat to the affected area. This has been associated with increased right upper back pain as well. She also describes a history of chronic diarrhea. This has been present for the last 3 years, where she would have approximately 3 to 4 liquid bowel movements per day ([place] 6 to 7) with no difficulty with defecation. She noticed that these liquid type bowel movements would occur within 15 to 20 minutes of eating and would occur more often with ingestion of fatty foods. However, upon questioning the patient, she states that her diarrhea significantly improved with fasting states, which raises the question of possible osmotic diarrhea. In relation to that, the patient drinks approximately 3 to 4 diet sodas daily in addition to artificial sweeteners in relation to her diabetic diet. As part of the workup for her chronic diarrhea, she recently underwent both an upper endoscopy and colonoscopy on May 26, 2018. The upper endoscopy showed findings consistent with a sleeve gastrectomy, but random biopsies were negative for overt pathology. The colonoscopy did show 4 polyps in the transverse and ascending colons that were resected with hot snare polypectomy, left-sided diverticulosis was also seen, but random biopsies obtained throughout the colon were negative for microscopic colitis. Of note, the patient does have significant coronary artery disease and had recently failed a stress test as part of the cardiology workup. However, she also has been having worsening renal disease and has not been able to undergo a repeat cardiac catheterization due to the worsening of her renal function. Otherwise, she denies any nausea, vomiting, fevers, chills, hematemesis, melena, hematochezia, dysphagia, or odynophagia. REVIEW OF SYSTEMS: A 10-category review of systems was obtained with all responses negative except for the pertinent positives as listed in HPI. PAST MEDICAL HISTORY: As per HPI. PAST SURGICAL HISTORY: Cholecystectomy, gastric sleeve bypass surgery, hysterectomy, bilateral knee replacement, right foot surgery, and right tendon repair. FAMILY HISTORY: Denies any GI malignancies. SOCIAL HISTORY: Denies any tobacco, alcohol, or illicit drug use. OUTPATIENT MEDICATIONS: Reviewed. ALLERGIES: ERYTHROMYCIN, PENICILLIN, AND TETRACYCLINE. PHYSICAL EXAMINATION: VITAL SIGNS: Temperature 98.5, pulse 69, blood pressure 153/84, respiratory rate 18, and saturating 97% on room air. GENERAL: The patient was lying in bed, in no acute distress. Alert and oriented x4. HEENT: Normocephalic and atraumatic. No JVD or scleral icterus noted. CARDIOVASCULAR: Regular rate and rhythm. However, there is a possible mild split to her S2. No discernible murmurs or rubs. RESPIRATORY: Clear to auscultation bilaterally with no discernible wheezes or rales. ABDOMEN: Normoactive bowel sounds. Soft and nondistended. Tenderness to palpation in the right lower quadrant, periumbilical and right upper quadrant. BACK: Significant tenderness to palpation along the right upper back near the thoracic vertebrae. EXTREMITIES: No cyanosis, clubbing, or edema. LABORATORY DATA: CBC with a white blood cell count of 3.9, hemoglobin 9.6, hematocrit 28.5, platelets 131. Chemistry with a sodium of 138, potassium 4.9, chloride 108, CO2 of 22, BUN 33, creatinine 2.66, glucose 197. AST 59, ALT 54, alkaline phosphatase 58, total bilirubin 0.3, and albumin 3.5. IMAGING DATA: CT of the abdomen and pelvis was obtained on July 08, 2018, which showed multiple diverticula within the left colon. Surgical change consistent with a sleeve gastrectomy without the appearance of ascites or pneumoperitoneum. However, pneumatosis was seen in the cecum with no evidence of overt perforation. EGD and colonoscopy obtained on May 26, 2018, showed findings consistent with surgical change associated with sleeve gastrectomy on the upper endoscopy. On the colonoscopy, 4 polyps were removed from both the transverse and ascending colon via snare cautery polypectomy. Left-sided diverticulosis was also seen, but random colonic biopsies were negative for microscopic colitis. ASSESSMENT AND PLAN: The patient is a 68-year-old female with past medical history of diabetes with nephropathy, coronary artery disease, hypothyroidism, nephrolithiasis, fibromyalgia, rheumatoid arthritis, hyperlipidemia, chronic kidney disease stage 4, and chronic hepatitis C infection with subsequent cirrhosis, presenting with right lower quadrant abdominal pain and imaging consistent with pneumatosis coli in light of chronic diarrhea. Pneumatosis coli. The patient is presenting with fairly acute onset of right upper back pain concerning for recurrence of nephrolithiasis. She was subsequently placed on Bactrim for the presumptive diagnosis of urinary tract infection. However, she did not respond to treatment with continued back pain and it has subsequently progressed to right lower quadrant abdominal discomfort, which ultimately brought her to the ER for further evaluation. Upon evaluation in the ER, she had a noncontrast CT scan showing probable pneumatosis in the cecum without any evidence of perforation or pneumoperitoneum. At this time, the etiology of her pneumatosis is unknown, but the differential could include perforation with recent instrumentation with colonoscopy in May (much less likely) infectious etiology , occult chronic obstructive pulmonary disease (much less likely) or production of hydrogen gas to fermentation with existing colonic ilana. Recommendations: 1. We would continue broad-spectrum antibiotic therapy with ciprofloxacin and especially metronidazole for treatment of a possible bacterial infection contributing to the current pneumatosis. 2. We would place the patient on high-flow oxygen therapy to facilitate reabsorption of these pockets. 3. There are no plans for endoscopic evaluation at this time given recent colonoscopy in May of this year. Diarrhea. The patient is presenting with a chronic history of frequent diarrhea , this has been present for the last 3 years. Her diarrhea seems to be primarily related to oral intake of osmotically active substances given the fact that her diarrhea improved significantly with fasting states. Given her daily consumption of artificial sweeteners, this could potentially contribute to her current diarrhea problem, however, with the recent appearance of pneumatosis coli and infectious etiology is within the differential. Recommendations: 1. We will obtain stool studies for possible infectious etiology and tailor antibiotic therapy accordingly. 2. We would avoid any osmotically active substances while here in the hospital. 3. Consider placing the patient on a higher fiber diet/fiber supplementation when she is discharged from the hospital. We will continue to follow. Please call with any questions. Job ID: [id number] MTDD
[2018-07-09] MEDS: Aspirin Chewable 81 MG TAB PO SCH (21:03)
[2018-07-09] MEDS: Atorvastatin Calcium 20 MG TAB PO SCH (21:03)
[2018-07-09] MEDS: cloNIDine 0.1 MG TAB PO SCH (21:10)
--- NOTE | 2018-07-10 00:39 | CON ---
DATE OF CONSULTATION: HISTORY OF PRESENT ILLNESS: Ms. Jones is a 68-year-old white female, who was admitted for right lower quadrant pain. Initially, she felt that she had renal colic. However, the imaging did not suggest any renal stones. Urinalysis did not show any hematuria. However, a CT scan of the abdomen and pelvis was done, which showed a new finding of pneumatosis of the cecum. Of interest, this patient has had a normal colonoscopy done 4 weeks ago. She is being empirically treated with antibiotics. GI consultation has been done. We are now following this patient for her acute kidney injury on top of her chronic renal failure. Her baseline creatinine is about 2.02 and on admission at the ER, she had a serum creatinine of 2.86. Volume repletion was even and this improved today to 2.66. The patient is feeling a little better and she denies any chest pain, shortness of breath, nausea, or vomiting. She describes she still has the persistent abdominal pain. REVIEW OF SYSTEMS: Positive for abdominal pain. No dysuria, no urinary frequency, no hematochezia, no melena, no hematemesis. No headache, no fever or chills. No nausea, no vomiting. No joint pains. No diplopia. No sore throat. No syncopal episode. No shortness of breath. MEDICATIONS: 1. Zyloprim 300 mg tablet daily. 2. Vitamin C 750 mg p.o. b.i.d. 3. Lipitor 20 mg tablet at bedtime. 4. Cipro 200 mg IV q.12. 5. Clonidine 0.1 mg at bedtime. 6. Normal saline at 75 mL/hour. 7. Levothyroxine 100 mcg daily. 8. Metronidazole 250 mg IV q.8h. 9. Irbesartan 150 mg at bedtime. PAST MEDICAL HISTORY: 1. Chronic renal failure from diabetic nephropathy. 2. Type 2 diabetes mellitus, at least 35 years duration. 3. Proteinuria. 4. Morbid obesity. 5. Gout. 6. Nephrolithiasis. 7. Chronic hepatitis C. 8. Failed antiviral treatment. 9. ? premature arthritis. 10. DJD. 11. Depression. 12. Fibromyalgia. 13. Hypertension. 14. Status post UTI. 15. Diabetic retinopathy. 16. Diabetic neuropathy. PAST SURGICAL HISTORY: 1. Status post cystoscopy. 2. Status post colonoscopy. 3. Status post upper GI endoscopy. 4. Status post liver biopsy. 5. Status post bariatric surgery. 6. Status post hysterectomy. 7. Status post right knee arthroscopic surgery. Status post open cholecystectomy. 8. Status post section. SOCIAL HISTORY: The patient is and lives with her . She lives in [place]. Three children. Education, PhD. No history of smoking. No alcohol intake. No drug abuse. Status post blood transfusion. FAMILY HISTORY: No family history of ESRD. ALLERGIES: PENICILLIN, TETRACYCLINE, AND ERYTHROMYCIN. TRAUMA: None. IMMUNIZATION: Up-to-date. HOSPITALIZATIONS: Please see past medical history. PHYSICAL EXAMINATION: VITAL SIGNS: Blood pressure 176/93, heart rate 68, respiratory rate 16, pulse ox 100%. GENERAL: Awake, alert, comfortable, not in distress. SKIN: Adequate turgor. HEENT: She has pinkish conjunctivae. Anicteric sclerae. No neck mass. No carotid bruits. No JVD. CHEST: No deformities. LUNGS: Clear breath sounds. HEART: Normal sinus rhythm. No murmur, no gallops, no rubs. ABDOMEN: Globular, soft, nontender, no masses. EXTREMITIES: No edema. No deformities. NEUROLOGICAL: Awake, oriented to 3 spheres. EXTREMITIES: Moving all extremities. No tremors, no asterixis. LABORATORY DATA: July 09, 2018, sodium 138, potassium 4.9, chloride 108, carbon dioxide 22, BUN 33, creatinine 2.66, GFR 18 mL/minute, glucose 197, calcium 8.3. LFTs normal. July 08, 2018, BUN 37, creatinine 2.86. White count 3.9, hemoglobin 9.6. Urinalysis, protein is 100, RBC 46, WBC 0-3. IMAGING: CT scan of the abdomen and pelvis showed pneumatosis of the cecum. ASSESSMENT/PLAN: 1. Acute kidney injury on top of chronic renal failure, consider prerenal azotemia. Agree with empiric volume repletion with this patient, currently on normal saline 75 mL/hour. I would suggest we hold off the irbesartan temporarily. 2. Hypertension. We will start the patient on clonidine patch TTS 1 q. week. 3. Abdominal pain. CT scan finding of pneumatosis of the cecum-gastroenterology following normal colonoscopy recently. 4. Overall agree with current management. Recheck basic metabolic panel, CBC in a.m. Job ID: [id number]
[2018-07-10 06:04] LABS: #Eosinphils 0.2 thou/uL (0.0-0.7); #Lymphocytes 1.5 thou/uL (1.20-3.40); #Monocytes 0.4 thou/uL (0.11-0.59); #Neutrophils 1.5 thou/uL (1.40-6.50); %Basophils 0.7 % (0.0-1.0); %Eosinophils 6.2 % (0.0-10.0); %Lymphocytes 41.8 % (21.0-51.0); %Monocytes 10.3 % (0.0-10.0); Hemoglobin 10.5 g/dL (12.0-16.0); Mean Corpuscular HGB CONC 33.9 g/dL (32.0-36.0); Mean Corpuscular Hemoglobin 31.4 pg (27.0-31.0); Mean Corpuscular Volume 92.9 fL (78.0-98.0); Mean Platelet Volume 8.9 fL (7.4-10.4); Platelet Count 128 thou/uL (130-400); RBC Distribution Width 12.4 % (11.5-14.5); Red Blood Cell (RBC) Count 3.33 mill/uL (4.20-5.40); White Blood Cell (WBC) Count 3.6 thou/uL (4.8-10.8)
[2018-07-10 06:05] LABS: INR-International Normal Ratio 1.1; Prothrombin Time 13.9 SEC (12.0-14.7)
[2018-07-10 06:28] LABS: ALT (SGPT) 44 U/L (8-55); AST (SGOT) 46 U/L (5-34); Albumin 3.5 g/dL (3.4-4.8); Alkaline Phosphatase 57 U/L (40-150); Anion Gap 11 mmol/L (10-20); BUN (Urea Nitrogen) 26 mg/dL (9.8-20.1); Bilirubin, Total 0.3 mg/dL (0.2-1.2); Calc. Creatinine Clearance 39 mL/min (70-130); Calcium 8.8 mg/dL (7.8-10.44); Carbon Dioxide 23 mmol/L (23-31); Chloride 109 mmol/L (98-107); Estimated GFR-MDRD 21; Globulin 3.3 g/dL (2.4-3.5); Glucose 204 mg/dL (80-115); Potassium 4.7 mmol/L (3.5-5.1); Protein, Total 6.8 g/dL (6.0-8.3); Sodium 138 mmol/L (136-145)
[2018-07-10] MEDS: Sodium Chloride 0.9% 1,000 ML IV SCH ×2 (06:32→20:14)
[2018-07-10] MEDS: Levothyroxine Sodium 100 MCG TAB PO SCH (06:32)
[2018-07-10] MEDS: METRONIDAZOLE IVPB SCH (06:33)
[2018-07-10] MEDS: HumaLOG 300 UNITS/3 ML VIAL SC PRN ×3 (06:34→21:23)
[2018-07-10] MEDS: Ciprofloxacin Lactate/D5W 200 MG in Premix Bag 1 BAG IVPB SCH ×2 (08:52→20:16)
[2018-07-10] MEDS: Ascorbic Acid 500 mg Chewable Tablet PO SCH ×2 (08:53→20:15)
[2018-07-10] MEDS: Heparin 5,000 UNITS/ML VIAL SC SCH ×2 (08:53→20:16)
[2018-07-10] MEDS: Famotidine/PF 20 mg/2ml Vial SLOW IVP SCH (08:53)
[2018-07-10] MEDS: FLUoxetine HCl 20 MG CAP PO SCH (08:53)
[2018-07-10] MEDS: Allopurinol 300 MG TAB PO SCH (08:54)
[2018-07-10] MEDS: Carvedilol 6.25 MG TAB PO SCH ×2 (08:54→20:15)
[2018-07-10] MEDS: metroNIDAZOLE 250 MG, Admixture Fee 1 EACH in Premix Bag 1 BAG IVPB SCH ×2 (15:16→20:16)
[2018-07-10] MEDS: Vancomycin HCl 25 MG/ML Oral PO SCH ×2 (16:15→20:15)
--- NOTE | 2018-07-10 17:46 | PRG ---
DATE OF SERVICE: 07/10/2018 SUBJECTIVE: Ms. Jones is a 68-year-old white female, who was admitted for abdominal pain, in which she was eventually diagnosed to have a C diff colitis. She has been started on IV antibiotics. We are following her up for acute kidney injury on top of chronic renal failure. She has been empirically volume repleted with some improvement in her renal function. We have held off the irbesartan temporarily with this patient. In addition, I have adjusted her allopurinol due to the worsening renal dysfunction. This afternoon, she feels better. OBJECTIVE: VITAL SIGNS: Blood pressure 170/97, heart rate 59, respiratory rate 16, temperature 98.4, and pulse ox 99%. GENERAL: Awake, supine, comfortable, not in distress. SKIN: Adequate turgor. HEENT: Pinkish conjunctivae. Anicteric sclerae. NECK: No neck mass. No carotid bruits. No JVD. CHEST: No deformities. LUNGS: Clear breath sounds. No wheezing. No crackles. HEART: Normal sinus rhythm. No murmur. No gallops. No rubs. ABDOMEN: Globular, soft, nontender. No masses. EXTREMITIES: Trace edema. No deformities. MEDICATIONS: Medications of July 10, 2018, reviewed. LABORATORY DATA: On July 10, 2018; white count 3.6, hemoglobin 10.5. Sodium 138, potassium 4.7, chloride 109, carbon dioxide 23, BUN 26, creatinine 2.3, glucose 204, AST 46, ALT 44, albumin is 3.5. ASSESSMENT AND PLAN: 1. Clostridium difficile colitis - currently on IV antibiotics. 2. Acute kidney injury on top of chronic renal failure, superimposed prerenal azotemia, improving with volume repletion and discontinuation of irbesartan. For the moment, continue current IV hydration until we can reach baseline creatinine. Her baseline creatinine is about 2.0 mg%. We will recheck a basic metabolic panel and CBC in a.m. Overall, agree with current management. Job ID: [id number]
--- NOTE | 2018-07-10 18:15 | PDOC.PN ---
- Subjective Encounter Start Date: 07/10/18 Encounter Start Time: 18:13 Patient lying in bed, she reports improved today, but still with some pain in abdomen. Cr improved to 2.3. C diff positive, vanco started. She denies chest pain, palpitations, n/v. Still having some mild diarrhea. - Objective Resuscitation Status - Order Detail: 07/08/18 21:27 Resuscitation Status Routine Resuscitation Status: FULL: Full Resuscitation MAR Reviewed: Yes Vital Signs & Weight: Vital Signs (12 hours) Temp Pulse Resp BP Pulse Ox 07/10/18 15:58 98.4 F 59 L 16 170/97 H 99 07/10/18 11:30 98.1 F 66 16 161/84 H 98 07/10/18 07:31 98.4 F 60 16 153/80 H 99 Weight Weight 224 lb I&O: 07/09/18 07/10/18 07/11/18 06:59 06:59 06:59 Intake Total 1140 1475 Balance 1140 1475 Result Diagrams: 07/10/18 05:12 07/10/18 05:12 Additional Labs: Accuchecks 07/10/18 07/10/18 07/10/18 16:32 11:37 06:20 POC Glucose 155 H 234 H 225 H 07/09/18 20:50 POC Glucose 206 H Radiology Reviewed by me: Yes Phys Exam - Physical Examination HEENT: moist MMs, oral pharynx no lesions Neck: no nodes, supple Respiratory: no wheezing, clear to auscultation bilateral Cardiovascular: RRR, no significant murmur Gastrointestinal: soft, positive bowel sounds Mild tenderness, improved from yesterday Musculoskeletal: pulses present Neurological: non-focal, moves all 4 limbs Psychiatric: normal affect, A&O x 3 Skin: no rash, cap refill <2 seconds Dx/Plan (1) Pneumatosis intestinalis of large intestine Code(s): K63.89 - OTHER SPECIFIED DISEASES OF INTESTINE Status: Acute (2) CKD (chronic kidney disease), stage III Code(s): N18.3 - CHRONIC KIDNEY DISEASE, STAGE 3 (MODERATE) Status: Chronic (3) Diabetes type 2, controlled Code(s): E11.9 - TYPE 2 DIABETES MELLITUS WITHOUT COMPLICATIONS Status: Chronic (4) Hypothyroidism Code(s): E03.9 - HYPOTHYROIDISM, UNSPECIFIED Status: Chronic (5) Obesity (BMI 30-39.9) Code(s): E66.9 - OBESITY, UNSPECIFIED Status: Chronic (6) Hypertension Code(s): I10 - ESSENTIAL (PRIMARY) HYPERTENSION Status: Acute (7) C. difficile diarrhea Code(s): A04.72 - ENTEROCOLITIS D/T CLOSTRIDIUM DIFFICILE, NOT SPCF RECUR Status: Acute - Plan cont current plan of care, continue antibiotics * She was started on vancomycin * Symptoms improved today, tolerating liquid diet * GI following * Nephrology following, Cr improved to 2.3, recheck BMP in am * Continue IV fluids * Switch to inpatient as she is not ready for d/c yet * Hopeful for discharge over the weekend, she will likely continue vancomycin q6h for 14 days per GI
--- NOTE | 2018-07-10 19:28 | PRG ---
DATE OF SERVICE: 07/10/2018 REASON FOR CONSULTATION: Pneumatosis coli, diarrhea. SUBJECTIVE: Earlier today, the patient had worsening of her right lower quadrant abdominal pain that was accompanied with increased bouts of nausea, but no vomiting. She was given pain medications and her abdominal pain improved throughout the day today. She also states that she has been having diarrhea characterized as multiple liquid bowel movements usually associated with ingestion of food within 15 to 20 minutes. Otherwise, she denies any fevers, chills, or GI bleeding. OBJECTIVE: VITAL SIGNS: Temperature 98.4, pulse 59, blood pressure 170/97, respiratory rate 16, saturating 99% on room air. GENERAL: The patient is lying in bed, in no acute distress. Alert and oriented x4. CARDIOVASCULAR: Regular rate and rhythm with possible split to her S2. RESPIRATORY: Clear to auscultation bilaterally. ABDOMEN: Normoactive bowel sounds. Soft, nondistended. Tenderness to palpation in the right lower quadrant and periumbilical region. EXTREMITIES: No cyanosis, clubbing, or edema. LABORATORY DATA: CBC with a white blood cell count 3.6, hemoglobin 10.5, hematocrit 30.9, platelets 128. INR 1.1. Chemistry with a sodium of 138, potassium 4.7, chloride 109, CO2 of 23, BUN 26, creatinine 2.3, glucose 204. Stool studies for Clostridium difficile were positive for the antigen, but not the toxin. Stool culture has been negative thus far. Parasite screen for Giardia or Cryptosporidium have been negative. E coli, Campylobacter, and Shiga like toxin test were all negative. IMAGING DATA: No current GI imaging is available for review. ASSESSMENT AND PLAN: The patient is a 68-year-old female with past medical history of diabetes with nephropathy, coronary artery disease, hypothyroidism, nephrolithiasis, fibromyalgia, rheumatoid arthritis, hyperlipidemia, chronic kidney disease stage 4, and chronic hepatitis C infection with subsequent cirrhosis, presenting with: Right lower quadrant abdominal pain. Imaging consistent with pneumatosis coli and recent infectious stool workup positive for Clostridium difficile, pneumatosis coli/Clostridium difficile colitis. The patient presented with a fairly acute onset of right upper quadrant abdominal pain with extension into her right lower quadrant. Upon evaluation in the ER, she had a noncontrast CT showing probable pneumatosis in the cecum without any evidence of perforation or pneumoperitoneum. Infectious stool studies were performed which have been thus far negative except for Clostridium difficile antigen positive, but toxin negative. Given the history of chronic diarrhea pneumatosis coli on imaging and positive C diff antigen at this point in time, I think that we should treat this as real and place her on treatment for Clostridium difficile colitis. Recommendations: 1. Would tailor antibiotic therapy specifically to treat the Clostridium difficile colitis with oral vancomycin 125 mg every 6 hours x14 days. 2. We will consider placing patient on high-flow oxygen therapy to facilitate reabsorption pneumatosis. 3. No plans for endoscopic evaluation at this time. Diarrhea: The patient is presenting with a chronic history frequent diarrhea that has been present for the last 3 years. It is seen primarily related to oral intake given that her diarrhea would improve with fasting states, leaning more towards an osmotic diarrhea. However, with the recent infectious stool studies positive for Clostridium difficile, I think this is a likely etiology at this time and does require treatment. Recommendations: 1. Would avoid any artificial sweeteners/osmotically active substances while here in hospital. 2. Would place the patient on treatment for Clostridium difficile colitis as above. 3. We will consider placing the patient on a higher fiber diet/fiber supplementation during this hospitalization with the addition of possible probiotic therapy while on treatment for Clostridium difficile colitis. Given her increased pain this morning, I would like to see her treated for at least 24 hours and responding to treatment prior to discharging her to home and follow up as an outpatient. We will continue to follow. Please call with any questions. Job ID: [id number]
[2018-07-10] MEDS: Aspirin Chewable 81 MG TAB PO SCH (20:15)
[2018-07-10] MEDS: Atorvastatin Calcium 20 MG TAB PO SCH (20:15)
[2018-07-10] MEDS: cloNIDine 0.1 MG TAB PO SCH (20:15)
[2018-07-11] MEDS: Vancomycin HCl 25 MG/ML Oral PO SCH ×4 (01:51→22:41)
[2018-07-11] MEDS: metroNIDAZOLE 250 MG, Admixture Fee 1 EACH in Premix Bag 1 BAG IVPB SCH ×3 (05:48→22:44)
[2018-07-11] MEDS: Levothyroxine Sodium 100 MCG TAB PO SCH (05:48)
[2018-07-11 05:54] LABS: #Eosinphils 0.2 thou/uL (0.0-0.7); #Lymphocytes 1.6 thou/uL (1.20-3.40); #Monocytes 0.4 thou/uL (0.11-0.59); #Neutrophils 1.7 thou/uL (1.40-6.50); %Basophils 0.3 % (0.0-1.0); %Eosinophils 5.7 % (0.0-10.0); %Lymphocytes 39.9 % (21.0-51.0); %Monocytes 10.9 % (0.0-10.0); %Neutrophils 43.2 % (42.0-75.0); Hemoglobin 9.7 g/dL (12.0-16.0); Mean Corpuscular HGB CONC 32.1 g/dL (32.0-36.0); Mean Corpuscular Hemoglobin 29.9 pg (27.0-31.0); Mean Corpuscular Volume 93.2 fL (78.0-98.0); Mean Platelet Volume 8.4 fL (7.4-10.4); Platelet Count 125 thou/uL (130-400); RBC Distribution Width 12.5 % (11.5-14.5); Red Blood Cell (RBC) Count 3.25 mill/uL (4.20-5.40)
[2018-07-11 06:13] LABS: Anion Gap 12 mmol/L (10-20); BUN (Urea Nitrogen) 24 mg/dL (9.8-20.1); Calc. Creatinine Clearance 41 mL/min (70-130); Calcium 8.8 mg/dL (7.8-10.44); Carbon Dioxide 23 mmol/L (23-31); Chloride 108 mmol/L (98-107); Estimated GFR-MDRD 22; Glucose 172 mg/dL (80-115); Sodium 138 mmol/L (136-145)
[2018-07-11] MEDS ORDERED: traMADol HCl 50 MG TAB PO PRN (07:57)
[2018-07-11] MEDS ORDERED: cloNIDine 0.1 MG TAB PO PRN ×2 (07:57→08:01)
[2018-07-11] MEDS: Heparin 5,000 UNITS/ML VIAL SC SCH (08:36)
[2018-07-11] MEDS: Ascorbic Acid 500 mg Chewable Tablet PO SCH ×2 (08:36→22:42)
[2018-07-11] MEDS: Carvedilol 6.25 MG TAB PO SCH ×2 (08:36→22:43)
[2018-07-11] MEDS: Allopurinol 300 MG TAB PO SCH (08:36)
[2018-07-11] MEDS: FLUoxetine HCl 20 MG CAP PO SCH (08:36)
[2018-07-11] MEDS: Saccharomyces boulardii 250 MG CAP PO SCH (08:37)
[2018-07-11] MEDS ORDERED: Famotidine 20 MG TAB PO SCH (09:00)
[2018-07-11] MEDS: Ciprofloxacin Lactate/D5W 200 MG in Premix Bag 1 BAG IVPB SCH ×2 (09:14→22:43)
[2018-07-11] MEDS: HumaLOG 300 UNITS/3 ML VIAL SC PRN ×2 (11:34→22:49)
[2018-07-11] MEDS: Sodium Chloride 0.9% 1,000 ML IV SCH ×3 (11:41→22:44)
--- NOTE | 2018-07-11 12:07 | PRG ---
DATE OF SERVICE: 07/11/2018 SUBJECTIVE: Ms. Jones is a 68-year-old white female, who was admitted for diarrhea and abdominal pain. She was found to have pneumatosis coli. In addition, she was positive for C. diff. Currently, on IV antibiotics. We are following up this patient for acute kidney injury on top of chronic renal failure. She has a superimposed hemodynamically-mediated renal dysfunction. Currently, the patient is on IV fluid. In addition, I have held off her irbesartan temporarily. No other complaints today. She is feeling better, less diarrhea, less abdominal pain. OBJECTIVE: VITAL SIGNS: Blood pressure 161/80, heart rate 73, respiratory rate 16, temperature 98.3, and pulse ox 97%. GENERAL: Noted to be awake, alert, comfortable, not in distress. SKIN: Adequate turgor. HEENT: She has had pinkish conjunctivae. Anicteric sclerae. No neck mass. No carotid bruits. No JVD. CHEST: No deformities. LUNGS: Clear breath sounds. HEART: Normal sinus rhythm. No murmur. No gallops. No rubs. ABDOMEN: Globular, soft, nontender. No masses. EXTREMITIES: No edema. No deformities. MEDICATIONS: Medications of July 11, 2018, reviewed. LABORATORY DATA: Laboratories of July 11, 2018; white count 4, hemoglobin 9.7. Sodium 138, potassium 5, chloride 108, carbon dioxide 23, BUN 24, creatinine 2.19, GFR 22 mL/minute, calcium 8.8. ASSESSMENT AND PLAN: 1. Acute kidney injury on top of chronic renal failure. Slowly improving renal function. Continue IV hydration with this patient. My bias is to increase normal saline from 75 mL to 100 mL/h. Continue to hold irbesartan. There is no indication for any dialytic intervention. 2. Clostridium difficile colitis, on IV antibiotics. GI following. 3. Borderline anemia. Continue to observe. Recheck basic metabolic panel and CBC in a.m. Job ID: [id number]
--- NOTE | 2018-07-11 15:49 | CT ---
NONCONTRAST ENHANCED CT IMAGES ABDOMEN AND PELVIS: HISTORY: Right lower quadrant pain with nausea. FINDINGS: Noncontrast enhanced CT images of the abdomen and pelvis obtained. Oral contrast was given. The lung bases are unremarkable. No evidence of free intraperitoneal air is seen. The liver and spleen are unremarkable. The gallbladder is been surgically removed. Gastric surgical marycruz seen. The pancreas is unremarkable. Adrenal glands unremarkable. The kidneys demonstrate some renal atrophy with likely cortical cysts seen in the left kidney. No dilated loops of small bowel seen. No definite evidence of colonic thickening seen in the proximal aspect of the colon. Descending and s igmoid colonic diverticuli are present. Some colonic thickening seen in the sigmoid colon compatible with possible colitis or diverticulitis. Abnormal thickening of the rectal mucosa also seen. IMPRESSION: 1: Descending and sigmoid colonic diverticuli compatible with diverticulosis. 2: Descending, sigmoid and rectal colonic thickening concerning for possible colitis. Transcribed Date/Time: 07/11/2018 3:53 PM
--- NOTE | 2018-07-11 17:40 | PRG ---
DATE OF SERVICE: 07/11/2018 REASON FOR CONSULTATION: Pneumatosis coli, diarrhea, Clostridium difficile colitis. SUBJECTIVE: Today, the patient states that her right lower quadrant abdominal pain has actually worsened when compared to tomorrow when compared to yesterday and is now starting to radiate up the right abdominal flank and into her right back. In addition, she has had multiple red tinged bowel movements today (approximately 2 to 3) that have been painless in terms of their expression. However, she has been eating primarily red-colored Jell-O as well as pink-colored oral vancomycin during this hospitalization. She states since starting the oral vancomycin, her diarrhea frequency has decreased, but the consistency has remained the same. Currently, she denies any fevers or chills. OBJECTIVE: VITAL SIGNS: Temperature 98.4, pulse 62, blood pressure 136/80, respiratory rate 16, and saturating 97% on room air. GENERAL: The patient is lying in bed, in no acute distress. Alert and oriented x4. CARDIOVASCULAR: Regular rate and rhythm. RESPIRATORY: Clear to auscultation bilaterally. ABDOMEN: Normoactive bowel sounds. Soft, nondistended. Tenderness to palpation in all abdominal quadrants. EXTREMITIES: No cyanosis, clubbing, or edema. LABORATORY DATA: CBC with a white blood cell count of 4.0, hemoglobin 9.7, hematocrit 30.3, platelets 125. Chemistry with a sodium of 138, potassium 5, chloride 108, CO2 of 23, BUN 24, creatinine 2.19, and glucose 172. IMAGING DATA: CT of the abdomen and pelvis was obtained on July 11, 2018, which showed no definite evidence of colonic thickening within the proximal aspect of the colon. However, descending and sigmoid colonic diverticula were present with some colonic thickening seen in the sigmoid colon concerning for possible colitis or diverticulitis, abnormal thickening of the rectal mucosa was also seen again concerning for possible colitis. ASSESSMENT AND PLAN: The patient is a 68-year-old female with past medical history of diabetes with nephropathy, coronary artery disease, hypothyroidism, nephrolithiasis, fibromyalgia, rheumatoid arthritis, hyperlipidemia, chronic kidney disease stage 4, and chronic hepatitis C infection with subsequent cirrhosis, presenting with right lower quadrant abdominal pain with pneumatosis coli. Right lower quadrant abdominal pain: The patient is presenting with increased right lower quadrant abdominal pain prior to admission with imaging consistent with pneumatosis coli and recent infectious stool workup positive for Clostridium difficile. At this time given the presence of the Clostridium difficile in stool, history of chronic diarrhea and right lower quadrant abdominal pain with imaging showing no pneumatosis coli on admission, it is strongly concerning for the presence of Clostridium difficile colitis. She is currently doing well on oral vancomycin therapy with a decreased diarrhea frequency, but continues to have increased liquid consistency as well as increased abdominal pain in the right lower quadrant. Imaging at this time does not show any evidence of pneumoperitoneum, perforation, or extension of the pneumatosis coli to explain her abdominal pain. Recommendations: 1. We would continue oral vancomycin 125 mg every 6 hours x14 days total therapy. 2. No plans for endoscopic evaluation at this time given evidence of probable Clostridium difficile colitis and increased risk of perforation with instrumentation. 3. Pain control per Primary Team. 4. We will continue to monitor response to treatment. We will continue to follow. Please call with any questions. Job ID: [id number]
--- NOTE | 2018-07-11 22:19 | PDOC.PN ---
- Subjective Encounter Start Date: 07/11/18 Encounter Start Time: 17:30 Patient seen and examined for Colitis. Diarrhea slowly improving. Rt sided flank pain improving. No N/V. Tolerating liqd diet. No other complaints. No overnight events - Objective Resuscitation Status - Order Detail: 07/08/18 21:27 Resuscitation Status Routine Resuscitation Status: FULL: Full Resuscitation MAR Reviewed: Yes Vital Signs & Weight: Vital Signs (12 hours) Temp Pulse Resp BP Pulse Ox 07/11/18 15:07 98.4 F 62 16 136/80 97 07/11/18 11:17 98.7 F 66 16 174/84 H 97 Weight Weight 224 lb I&O: 07/10/18 07/11/18 07/12/18 06:59 06:59 06:59 Intake Total 1475 5350 2540 Balance 1475 5350 2540 Result Diagrams: 07/12/18 04:55 07/12/18 04:55 Additional Labs: Accuchecks 07/11/18 07/11/18 07/11/18 15:13 11:21 06:30 POC Glucose 149 H 273 H 203 H Radiology Reviewed by me: Yes (CT abd 07/11 - Colitis ) Phys Exam - Physical Examination Constitutional: NAD Respiratory: no wheezing, no rhonchi Cardiovascular: RRR, no rub Gastrointestinal: soft, positive bowel sounds mild Rt sided flank tenderness, no rebound/guarding Musculoskeletal: no edema Neurological: non-focal, moves all 4 limbs Dx/Plan - Plan out of bed/ambulate, DVT proph w/SCDs IMPRESSION: C diff Colitis/?Pneumatosis coli on imaging from 07/08 DM2 - on Insulin pump at home JORDYN on CKD 4 RA Anemia due to chronic disease Hypothyroidism Obesity BMI 34.1 CAD Dyslipidemia Thrombocytopenia Abn LFTs prob due to #1 - improving Chronic Hep C with Cirrhosis PLAN: Cont IV Cipro/Flagyl Cont PO Vancomycin Add Florastor Change Pepcid to PO Cont current diet Cont IVF Reduce Allopurinol to 100 mg daily due to JORDYN Cont other meds as below AM labs Review of Systems - Review of Systems Respiratory: negative: Cough, Dry, Shortness of Breath, Hemoptysis, SOB with Excertion, Pleuritic Pain, Sputum, Wheezing Cardiovascular: negative: chest pain, palpitations, orthopnea, paroxysmal nocturnal dyspnea, edema, light headedness, other Gastrointestinal: negative: Nausea, Vomiting, Abdominal Pain, Diarrhea, Constipation, Melena, Hematochezia, Other - Medications/Allergies Allergies/Adverse Reactions: Allergies Allergy/AdvReac Type Severity Reaction Status Date / Time erythromycin base Allergy SWELLING Verified 06/22/18 16:09 TO FACE Penicillins Allergy Anaphylaxis Verified 06/22/18 16:09 tetracycline Allergy Anaphylaxis Verified 06/22/18 16:09 Medications: Current Medications Allopurinol (Zyloprim) 150 mg PO DAILY [facility] Last Admin: 07/11/18 08:36 Dose: 150 mg Ascorbic Acid (Vitamin C) 750 mg PO BID [facility] Last Admin: 07/11/18 08:36 Dose: 750 mg Aspirin (Aspirin Chewable) 81 mg PO [facility] Last Admin: 07/10/18 20:15 Dose: 81 mg Atorvastatin Calcium (Lipitor) 20 mg PO HS [facility] Last Admin: 07/10/18 20:15 Dose: 20 mg Bisacodyl (Dulcolax) 10 mg [place] DAILYPRN PRN PRN Reason: Constipation Carvedilol (Coreg) 6.25 mg PO BID [facility] Last Admin: 07/11/18 08:36 Dose: 6.25 mg Clonidine (Catapres) 0.1 mg PO [facility] Last Admin: 07/10/18 20:15 Dose: 0.1 mg Clonidine (Fdwhaebw-Pwk-1 Patch) 0.1 mg TD Q7DAYS [facility] Clonidine (Catapres) 0.1 mg PO Q4H PRN PRN Reason: Systolic BP > 180 Dextrose/Water (Dextrose 50%) 25 gm SLOW IVP PRN PRN PRN Reason: Hypoglycemia Famotidine (Pepcid) 20 mg PO DAILY [facility] Fluoxetine HCl (Prozac) 40 mg PO DAILY [facility] Last Admin: 07/11/18 08:36 Dose: 40 mg Glucagon (Glucagon) 1 mg IM PRN PRN PRN Reason: Hypoglycemia Dextrose/Water (D5w) 1,000 mls @ 0 mls/hr IV .Q0M PRN PRN Reason: Hypoglycemia Ciprofloxacin/Dextrose 200 mg/ (Device) 100 mls @ 100 mls/hr IVPB Q12HR [facility] Last Admin: 07/11/18 09:14 Dose: 100 mls Metronidazole 250 mg/Miscellaneous Medication 1 each/ Device 50 mls @ 100 mls/ hr IVPB Q8HR [facility] Last Admin: 07/11/18 13:45 Dose: 50 mls Sodium Chloride (Normal Saline 0.9%) 1,000 mls @ 100 mls/hr IV .Q10H [facility] Last Admin: 07/11/18 15:06 Dose: 1,000 mls Insulin Human Lispro (Humalog) 0 units SC .MODERATE SLIDING SC PRN PRN Reason: Moderate Correctional Scale Last Admin: 07/11/18 11:34 Dose: 6 unit Insulin Human Lispro (Humalog) 0 units SC .BEDTIME SLIDING SC PRN PRN Reason: Bedtime Correctional Scale Last Admin: 07/10/18 21:23 Dose: 3 units Levothyroxine Sodium (Synthroid) 100 mcg PO 0600 [facility] Last Admin: 07/11/18 05:48 Dose: 100 mcg Ondansetron HCl (Zofran) 4 mg IVP Q6H PRN PRN Reason: Nausea/Vomiting Last Admin: 07/10/18 07:22 Dose: 4 mg Saccharomyces Boulardii (Florastor) 250 mg PO DAILY [facility] Last Admin: 07/11/18 08:37 Dose: 250 mg Sodium Chloride (Flush - Normal Saline) 10 ml IVF PRN PRN PRN Reason: Saline Flush Tramadol HCl (Ultram) 50 mg PO Q6H PRN PRN Reason: Moderate Pain (4-6) Last Admin: 07/11/18 08:37 Dose: 50 mg Vancomycin HCl (First Vancomycin) 125 mg PO 0300,0900,1500,2100 [facility] Stop: 07/24/18 15:01 Last Admin: 07/11/18 15:05 Dose: 125 mg
[2018-07-11] MEDS: cloNIDine 0.1 MG TAB PO SCH (22:42)
[2018-07-11] MEDS: Atorvastatin Calcium 20 MG TAB PO SCH (22:42)
[2018-07-11] MEDS: Aspirin Chewable 81 MG TAB PO SCH (22:43)
[2018-07-12] MEDS: Vancomycin HCl 25 MG/ML Oral PO SCH ×4 (03:49→20:39)
[2018-07-12 05:05] LABS: #Eosinphils 0.2 thou/uL (0.0-0.7); #Lymphocytes 1.4 thou/uL (1.20-3.40); #Monocytes 0.3 thou/uL (0.11-0.59); #Neutrophils 1.8 thou/uL (1.40-6.50); %Basophils 1.2 % (0.0-1.0); %Eosinophils 4.9 % (0.0-10.0); %Lymphocytes 36.8 % (21.0-51.0); %Monocytes 8.5 % (0.0-10.0); %Neutrophils 48.6 % (42.0-75.0); Hemoglobin 10.3 g/dL (12.0-16.0); Mean Corpuscular HGB CONC 34.4 g/dL (32.0-36.0); Mean Corpuscular Hemoglobin 31.9 pg (27.0-31.0); Mean Corpuscular Volume 92.6 fL (78.0-98.0); Platelet Count 125 thou/uL (130-400); RBC Distribution Width 12.5 % (11.5-14.5); Red Blood Cell (RBC) Count 3.23 mill/uL (4.20-5.40); White Blood Cell (WBC) Count 3.7 thou/uL (4.8-10.8)
[2018-07-12 05:23] LABS: Anion Gap 13 mmol/L (10-20); BUN (Urea Nitrogen) 20 mg/dL (9.8-20.1); Calc. Creatinine Clearance 41 mL/min (70-130); Calcium 8.9 mg/dL (7.8-10.44); Carbon Dioxide 21 mmol/L (23-31); Chloride 110 mmol/L (98-107); Estimated GFR-MDRD 23; Glucose 191 mg/dL (80-115); Magnesium 1.6 mg/dL (1.6-2.6); Potassium 4.4 mmol/L (3.5-5.1); Sodium 140 mmol/L (136-145)
[2018-07-12] MEDS: Levothyroxine Sodium 100 MCG TAB PO SCH (06:09)
[2018-07-12] MEDS: metroNIDAZOLE 250 MG, Admixture Fee 1 EACH in Premix Bag 1 BAG IVPB SCH ×3 (06:11→22:17)
[2018-07-12] MEDS: HumaLOG 300 UNITS/3 ML VIAL SC PRN ×3 (06:12→16:43)
[2018-07-12] MEDS: Ciprofloxacin Lactate/D5W 200 MG in Premix Bag 1 BAG IVPB SCH ×2 (08:26→20:39)
[2018-07-12] MEDS: Saccharomyces boulardii 250 MG CAP PO SCH (08:27)
[2018-07-12] MEDS: FLUoxetine HCl 20 MG CAP PO SCH (08:27)
[2018-07-12] MEDS: Carvedilol 6.25 MG TAB PO SCH ×2 (08:27→20:40)
[2018-07-12] MEDS: Famotidine 20 MG TAB PO SCH (08:27)
[2018-07-12] MEDS: Ascorbic Acid 500 mg Chewable Tablet PO SCH ×2 (08:28→20:40)
[2018-07-12] MEDS: Allopurinol 100 MG TAB PO SCH (08:33)
--- NOTE | 2018-07-12 11:05 | PRG ---
DATE OF SERVICE: 07/12/2018 SUBJECTIVE: Ms. Jones is a 68-year-old white female with chronic renal failure and followed up by the [facility] for acute kidney injury on top of her chronic renal failure. She was admitted for pneumatosis coli/diarrhea. She was diagnosed to have C. diff colitis. She also is complaining of some blood in her stools. A CT scan of the abdomen and pelvis was done on July 11, 2018, and it showed descending sigmoid rectal colonic thickening - suggestive of colitis. No complaints of chest pain or shortness of breath. Please note, I did increase her IV fluid to 100 mL/h - normal saline. OBJECTIVE: VITAL SIGNS: Blood pressure 136/81, heart rate 62, respiratory rate 16, temperature 98.2, and pulse ox 99%. GENERAL: Awake, supine, and comfortable, not in distress. SKIN: Adequate turgor. HEENT: She has a pinkish conjunctivae. Anicteric sclerae. NECK: No neck mass. No carotid bruits. No JVD. CHEST: No deformities. LUNGS: Clear breath sounds. No wheezing. No crackles. HEART: Normal sinus rhythm. No murmurs. No gallops. No rubs. ABDOMEN: Globular, soft, and nontender. No masses. EXTREMITIES: No edema. No deformities. MEDICATIONS: Medications of July 12, 2018, was reviewed. LABORATORY DATA: Laboratories of July 12, 2018, white count 3.7 and hemoglobin 10.3. Sodium 140, potassium 4.4, chloride 110, carbon dioxide 21, BUN 20, creatinine 2.14, glucose 191, calcium 8.9, and magnesium is 1.6. ASSESSMENT AND PLAN: 1. Acute kidney injury/chronic renal failure, superimposed prerenal azotemia. There is stabilization of the renal function. Creatinine today is 2.14, which is relatively unchanged in last 24 hours. No indication for any dialytic intervention. Continue current normal saline. We will continue to hold off the irbesartan. 2. Clostridium difficile colitis - on IV antibiotics. Still passing some blood through the rectum. GI following. 3. We will recheck basic metabolic and CBC in a.m. Job ID: [id number]
[2018-07-12] MEDS: Sodium Chloride 0.9% 1,000 ML IV SCH ×3 (15:45→22:17)
--- NOTE | 2018-07-12 17:16 | PRG ---
DATE OF SERVICE: 07/12/2018 REASON FOR CONSULTATION: Clostridium difficile colitis, right lower quadrant abdominal pain, and abnormal GI imaging. SUBJECTIVE: Today, the patient states that her right lower quadrant abdominal pain has improved when compared to yesterday and is now fairly minimal despite increased movements. She also states that her diarrhea had improved as well, having approximately one semi-solid bowel movement early this morning. There was more sediment within the toilet rather than liquid in nature. During the bowel movement this morning, she did have a bit of red tinge to her stool, but was not as severe as it was yesterday. Currently, she is tolerating the oral vancomycin well with no problems or adverse effects. Currently, she denies any nausea, vomiting, fevers, or chills. OBJECTIVE: VITAL SIGNS: Temperature 98.5, pulse 62, blood pressure 127/68, respiratory rate 16, and saturating 96% on room air. GENERAL: The patient was lying in bed, in no acute distress. Alert and oriented x4. CARDIOVASCULAR: Regular rate and rhythm. RESPIRATORY: Clear to auscultation bilaterally. ABDOMEN: Normoactive bowel sounds. Soft, nondistended, and mild tenderness to palpation in the right upper and right lower quadrants. EXTREMITIES: No cyanosis, clubbing, or edema. LABORATORY DATA: CBC with a white blood cell count of 3.7, hemoglobin 10.3, hematocrit 29.9, and platelets 125. Chemistry with a sodium of 140, potassium 4.4, chloride 110, CO2 of 21, BUN 20, creatinine 2.14, and glucose 191. IMAGING DATA: No current GI imaging is available for review. ASSESSMENT AND PLAN: The patient is a 68-year-old female with past medical history of diabetes with nephropathy, coronary artery disease, hypothyroidism, nephrolithiasis, fibromyalgia, rheumatoid arthritis, hyperlipidemia, chronic kidney disease stage 4, and chronic hepatitis C infection with subsequent cirrhosis, presenting with right lower quadrant abdominal pain and pneumatosis coli seen on imaging. Right lower quadrant abdominal pain. The patient initially presented with increased right lower quadrant abdominal pain in addition to frequent diarrhea and imaging consistent with pneumatosis coli. Infectious stool workup was performed and positive for Clostridium difficile. She was subsequently placed on oral vancomycin and has been responding well to this treatment with decrease in her abdominal pain, diarrhea, frequency, and is now having less red colored stools when compared to previous. CT scan obtained during this admission did not show any evidence of complication within the right colon with no evidence of pneumoperitoneum, perforation, or extension of the pneumatosis coli. RECOMMENDATIONS: 1. We would continue oral vancomycin 125 mg every 6 hours x14 days total therapy. 2. Pain control per primary team. 3. No plans for endoscopic evaluation at this time given increased risk of perforation with active infection. We will continue to follow. Please call with any questions. Job ID: [id number]
[2018-07-12] MEDS: cloNIDine 0.1 MG TAB PO SCH (20:39)
[2018-07-12] MEDS: Atorvastatin Calcium 20 MG TAB PO SCH (20:39)
[2018-07-12] MEDS: Aspirin Chewable 81 MG TAB PO SCH (20:39)
--- NOTE | 2018-07-12 22:12 | PDOC.PN ---
- Subjective Encounter Start Date: 07/12/18 Encounter Start Time: 11:30 Patient seen and examined for C diff colitis. BM earlier had some red tinged. Abd pain improving. No new complaints. No overnight events - Objective Resuscitation Status - Order Detail: 07/08/18 21:27 Resuscitation Status Routine Resuscitation Status: FULL: Full Resuscitation MAR Reviewed: Yes Vital Signs & Weight: Vital Signs (12 hours) Temp Pulse Resp BP BP BP Pulse Ox 07/12/18 20:40 174/89 H 07/12/18 20:39 174/89 H 07/12/18 16:15 98.5 F 62 16 127/68 96 07/12/18 12:00 98.4 F 63 16 162/78 H 99 Weight Weight 224 lb I&O: 07/11/18 07/12/18 07/13/18 06:59 06:59 06:59 Intake Total 5350 4370 3120 Balance 5350 4370 3120 Result Diagrams: 07/12/18 04:55 07/12/18 04:55 Additional Labs: Accuchecks 07/12/18 07/12/18 07/12/18 20:46 16:20 11:51 POC Glucose 199 H 166 H 314 H 07/12/18 07/11/18 06:13 22:42 POC Glucose 206 H 211 H Phys Exam - Physical Examination Constitutional: NAD Respiratory: no wheezing, no rhonchi Cardiovascular: RRR, no rub Gastrointestinal: soft, positive bowel sounds Musculoskeletal: no edema Dx/Plan - Plan DVT proph w/SCDs IMPRESSION: C diff Colitis/?Pneumatosis coli on imaging from 07/08 DM2 - on Insulin pump JORDYN on CKD 4 - improving RA Anemia due to chronic disease Hypothyroidism Obesity BMI 34.1 CAD Dyslipidemia Thrombocytopenia Abn LFTs prob due to #1 - improving Chronic Hep C with Cirrhosis PLAN: Cont IV Cipro/Flagyl with oral Vancomycin Cont full liqd diet Cont IVF Cont other meds as below AM labs Review of Systems - Review of Systems Respiratory: negative: Cough, Dry, Shortness of Breath, Hemoptysis, SOB with Excertion, Pleuritic Pain, Sputum, Wheezing Cardiovascular: negative: chest pain, palpitations, orthopnea, paroxysmal nocturnal dyspnea, edema, light headedness, other - Medications/Allergies Allergies/Adverse Reactions: Allergies Allergy/AdvReac Type Severity Reaction Status Date / Time erythromycin base Allergy SWELLING Verified 06/22/18 16:09 TO FACE Penicillins Allergy Anaphylaxis Verified 06/22/18 16:09 tetracycline Allergy Anaphylaxis Verified 06/22/18 16:09 Medications: Current Medications Allopurinol (Zyloprim) 100 mg PO DAILY [facility] Last Admin: 07/12/18 08:33 Dose: 100 mg Ascorbic Acid (Vitamin C) 750 mg PO BID [facility] Last Admin: 07/12/18 20:40 Dose: 750 mg Aspirin (Aspirin Chewable) 81 mg PO HS [facility] Last Admin: 07/12/18 20:39 Dose: 81 mg Atorvastatin Calcium (Lipitor) 20 mg PO HS [facility] Last Admin: 07/12/18 20:39 Dose: 20 mg Bisacodyl (Dulcolax) 10 mg RI DAILYPRN PRN PRN Reason: Constipation Carvedilol (Coreg) 6.25 mg PO BID [facility] Last Admin: 07/12/18 20:40 Dose: 6.25 mg Clonidine (Catapres) 0.1 mg PO [facility] Last Admin: 07/12/18 20:39 Dose: 0.1 mg Clonidine (Cfwieanz-Nei-5 Patch) 0.1 mg TD Q7DAYS [facility] Clonidine (Catapres) 0.1 mg PO Q4H PRN PRN Reason: Systolic BP > 180 Dextrose/Water (Dextrose 50%) 25 gm SLOW IVP PRN PRN PRN Reason: Hypoglycemia Famotidine (Pepcid) 20 mg PO DAILY [facility] Last Admin: 07/12/18 08:27 Dose: 20 mg Fluoxetine HCl (Prozac) 40 mg PO DAILY [facility] Last Admin: 07/12/18 08:27 Dose: 40 mg Glucagon (Glucagon) 1 mg IM PRN PRN PRN Reason: Hypoglycemia Dextrose/Water (D5w) 1,000 mls @ 0 mls/hr IV .Q0M PRN PRN Reason: Hypoglycemia Ciprofloxacin/Dextrose 200 mg/ (Device) 100 mls @ 100 mls/hr IVPB Q12HR [facility] Last Admin: 07/12/18 20:39 Dose: 100 mls Metronidazole 250 mg/Miscellaneous Medication 1 each/ Device 50 mls @ 100 mls/ hr IVPB Q8HR [facility] Last Admin: 07/12/18 14:36 Dose: 50 mls Sodium Chloride (Normal Saline 0.9%) 1,000 mls @ 100 mls/hr IV .Q10H [facility] Last Admin: 07/12/18 15:46 Dose: Not Given Insulin Human Lispro (Humalog) 0 units SC .MODERATE SLIDING SC PRN PRN Reason: Moderate Correctional Scale Last Admin: 07/12/18 16:43 Dose: 2 unit Insulin Human Lispro (Humalog) 0 units SC .BEDTIME SLIDING SC PRN PRN Reason: Bedtime Correctional Scale Last Admin: 07/11/18 22:49 Dose: 2 units Levothyroxine Sodium (Synthroid) 100 mcg PO 0600 [facility] Last Admin: 07/12/18 06:09 Dose: 100 mcg Ondansetron HCl (Zofran) 4 mg IVP Q6H PRN PRN Reason: Nausea/Vomiting Last Admin: 07/10/18 07:22 Dose: 4 mg Saccharomyces Boulardii (Florastor) 250 mg PO DAILY [facility] Last Admin: 07/12/18 08:27 Dose: 250 mg Sodium Chloride (Flush - Normal Saline) 10 ml IVF PRN PRN PRN Reason: Saline Flush Tramadol HCl (Ultram) 50 mg PO Q6H PRN PRN Reason: Moderate Pain (4-6) Last Admin: 07/11/18 08:37 Dose: 50 mg Vancomycin HCl (First Vancomycin) 125 mg PO 0300,0900,1500,2100 [facility] Stop: 07/24/18 15:01 Last Admin: 07/12/18 20:39 Dose: 125 mg
[2018-07-13] MEDS: Vancomycin HCl 25 MG/ML Oral PO SCH ×4 (03:55→22:09)
[2018-07-13 06:11] LABS: #Eosinphils 0.2 thou/uL (0.0-0.7); #Lymphocytes 1.4 thou/uL (1.20-3.40); #Monocytes 0.4 thou/uL (0.11-0.59); #Neutrophils 2.6 thou/uL (1.40-6.50); %Basophils 0.5 % (0.0-1.0); %Eosinophils 4.2 % (0.0-10.0); %Lymphocytes 29.9 % (21.0-51.0); %Monocytes 9.5 % (0.0-10.0); Hemoglobin 10.6 g/dL (12.0-16.0); Mean Corpuscular HGB CONC 34.5 g/dL (32.0-36.0); Mean Corpuscular Volume 92.6 fL (78.0-98.0); Mean Platelet Volume 8.5 fL (7.4-10.4); Platelet Count 122 thou/uL (130-400); RBC Distribution Width 12.4 % (11.5-14.5); Red Blood Cell (RBC) Count 3.32 mill/uL (4.20-5.40); White Blood Cell (WBC) Count 4.6 thou/uL (4.8-10.8)
[2018-07-13] MEDS: Levothyroxine Sodium 100 MCG TAB PO SCH (06:22)
[2018-07-13] MEDS: metroNIDAZOLE 250 MG, Admixture Fee 1 EACH in Premix Bag 1 BAG IVPB SCH ×3 (06:22→22:11)
[2018-07-13] MEDS: HumaLOG 300 UNITS/3 ML VIAL SC PRN ×3 (06:22→17:36)
[2018-07-13 06:46] LABS: Anion Gap 13 mmol/L (10-20); BUN (Urea Nitrogen) 16 mg/dL (9.8-20.1); Calc. Creatinine Clearance 45 mL/min (70-130); Calcium 8.8 mg/dL (7.8-10.44); Carbon Dioxide 23 mmol/L (23-31); Chloride 108 mmol/L (98-107); Estimated GFR-MDRD 25; Glucose 229 mg/dL (80-115); Potassium 4.1 mmol/L (3.5-5.1); Sodium 140 mmol/L (136-145)
[2018-07-13] MEDS: Ciprofloxacin Lactate/D5W 200 MG in Premix Bag 1 BAG IVPB SCH ×2 (08:48→22:10)
[2018-07-13] MEDS: Famotidine 20 MG TAB PO SCH (08:49)
[2018-07-13] MEDS: Ascorbic Acid 500 mg Chewable Tablet PO SCH ×2 (08:49→22:11)
[2018-07-13] MEDS: FLUoxetine HCl 20 MG CAP PO SCH (08:49)
[2018-07-13] MEDS: Saccharomyces boulardii 250 MG CAP PO SCH (08:49)
[2018-07-13] MEDS: Carvedilol 6.25 MG TAB PO SCH ×2 (08:49→22:11)
[2018-07-13] MEDS: Allopurinol 100 MG TAB PO SCH (08:49)
--- NOTE | 2018-07-13 10:17 | PRG ---
DATE OF SERVICE: 07/13/2018 SUBJECTIVE: Ms. Jones is a 68-year-old white female with chronic renal failure from diabetic nephropathy and admitted for an acute diverticulitis; doing well since admission. Blood in the stools have stopped. We were seeing this patient for acute kidney injury on top of her chronic renal failure. She has been given volume repletion and at the same time we held off the irbesartan temporarily. No other complaints today. OBJECTIVE: VITAL SIGNS: Blood pressure 167/81, heart rate 64, respiratory rate 16, temperature 98.3, and pulse ox 96%. GENERAL: Awake, alert, and comfortable, not in distress. SKIN: Adequate turgor. HEENT: Pinkish conjunctivae. Anicteric sclerae. No neck mass. No carotid bruits. No JVD. CHEST: No deformities. LUNGS: Clear breath sounds. No wheezing. No crackles. HEART: Normal sinus rhythm. No murmur. No gallops. No rubs. ABDOMEN: Globular, soft, and nontender. No masses. EXTREMITIES: No edema. No deformities. MEDICATIONS: Medications of July 13, 2018 were reviewed. LABORATORY DATA: Laboratories of July 13, 2018; white count 4.6 and hemoglobin 10.6. Sodium 140, potassium 4.1, chloride 108, carbon dioxide 23, BUN 16, creatinine 1.97, glucose 229, and calcium 8.8. ASSESSMENT AND PLAN: 1. Acute kidney injury on top of her chronic renal failure, much improved creatinine. The most recent creatinine is now 1.97. The patient has been volume repleted. I would continue to hold off irbesartan for the moment. 2. Acute diverticulitis/C diff-doing better. Currently, on IV antibiotics. GI following. 3. Hematochezia/melena-resolved. Most likely related to underlying C diff colitis. 4. Agree with current management. I did instruct the patient to call my office for a followup appointment. Job ID: [id number]
--- NOTE | 2018-07-13 17:29 | PRG ---
DATE OF SERVICE: 07/13/2018 SUBJECTIVE: Ms. Jones says she is feeling better today. She is tolerating her full liquid diet with no nausea or vomiting. She is passing some gas. Right lower quadrant pain has improved, she just feels the sensation of moving through her bowels, which is not painful. She is tolerating the oral vancomycin. No fever. OBJECTIVE: VITAL SIGNS: Temperature 98.4, pulse 60, blood pressure 131/64, and 98% oxygen saturation on room air. GENERAL: No acute distress. HEART: Regular rate and rhythm. LUNGS: Clear to auscultation bilaterally. ABDOMEN: Bowel sounds present. Soft. Mild generalized tenderness to palpation, but no guarding or rebound tenderness. EXTREMITIES: No peripheral edema. LABORATORY STUDIES: WBC 4.6, hemoglobin 10.6, platelets 122. Sodium 140, potassium 4.1, BUN 16, creatinine 1.97, and glucose 174. ASSESSMENT AND PLAN: 1. Clostridium difficile colitis, now on treatment with oral vancomycin. 2. Pneumatosis coli, resolved on repeat CT scan, 07/11/2018. 3. Right lower quadrant pain, improved. I agree with Dr. Buchanan' recommendations to complete oral vancomycin for a 14-day course. I think the patient's diet can be advanced to a regular diet. If she does well with this on this evening and tomorrow morning, I think she could potentially be discharged home from the hospital to complete her oral vancomycin as an outpatient. Job ID: [id number]
--- NOTE | 2018-07-13 18:39 | PDOC.PN ---
- Subjective Encounter Start Date: 07/13/18 Encounter Start Time: 18:37 Patient seen and examined for Colitis. Feels better. Had loose stool with small amt of blood earlier today. No abd pain. No new complaints. No overnight events - Objective Resuscitation Status - Order Detail: 07/08/18 21:27 Resuscitation Status Routine Resuscitation Status: FULL: Full Resuscitation MAR Reviewed: Yes Vital Signs & Weight: Vital Signs (12 hours) Temp Pulse Resp BP BP BP Pulse Ox 07/13/18 15:57 98.4 F 60 16 131/64 98 07/13/18 12:00 98.1 F 60 18 144/84 H 98 07/13/18 08:50 96 07/13/18 08:49 167/81 H 07/13/18 07:35 98.3 F 64 16 167/81 H 96 Weight Weight 224 lb I&O: 07/12/18 07/13/18 07/14/18 06:59 06:59 06:59 Intake Total 4370 3120 1700 Balance 4370 3120 1700 Result Diagrams: 07/13/18 05:35 07/13/18 05:35 Additional Labs: Accuchecks 07/13/18 07/13/18 07/13/18 15:57 11:01 05:14 POC Glucose 174 H 307 H 237 H 07/12/18 20:46 POC Glucose 199 H Phys Exam - Physical Examination Constitutional: NAD Neurological: moves all 4 limbs Psychiatric: A&O x 3 Dx/Plan - Plan DVT proph w/SCDs IMPRESSION: C diff Colitis/?Pneumatosis coli on repeat imaging DM2 - on Insulin pump JORDYN on CKD 4 - improving RA Anemia due to chronic disease Hypothyroidism Obesity BMI 34.1 CAD Dyslipidemia Thrombocytopenia Abn LFTs prob due to #1 - improving Chronic Hep C with Cirrhosis PLAN: Cont IV Cipro/Flagyl Cont PO Vancomycin Advance diet to Regular per GI DC IVF( I confirmed with Dr Garzon) Cont other meds as below DC in AM if stable Review of Systems - Review of Systems Respiratory: negative: Cough, Dry, Shortness of Breath, Hemoptysis, SOB with Excertion, Pleuritic Pain, Sputum, Wheezing Cardiovascular: negative: chest pain, palpitations, orthopnea, paroxysmal nocturnal dyspnea, edema, light headedness, other - Medications/Allergies Allergies/Adverse Reactions: Allergies Allergy/AdvReac Type Severity Reaction Status Date / Time erythromycin base Allergy SWELLING Verified 06/22/18 16:09 TO FACE Penicillins Allergy Anaphylaxis Verified 06/22/18 16:09 tetracycline Allergy Anaphylaxis Verified 06/22/18 16:09 Medications: Current Medications Allopurinol (Zyloprim) 100 mg PO DAILY [facility] Last Admin: 07/13/18 08:49 Dose: 100 mg Ascorbic Acid (Vitamin C) 750 mg PO BID [facility] Last Admin: 07/13/18 08:49 Dose: 750 mg Aspirin (Aspirin Chewable) 81 mg PO [facility] Last Admin: 07/12/18 20:39 Dose: 81 mg Atorvastatin Calcium (Lipitor) 20 mg PO HS [facility] Last Admin: 07/12/18 20:39 Dose: 20 mg Bisacodyl (Dulcolax) 10 mg [place] DAILYPRN PRN PRN Reason: Constipation Carvedilol (Coreg) 6.25 mg PO BID [facility] Last Admin: 07/13/18 08:49 Dose: 6.25 mg Clonidine (Catapres) 0.1 mg PO [facility] Last Admin: 07/12/18 20:39 Dose: 0.1 mg Clonidine (Catapres) 0.1 mg PO Q4H PRN PRN Reason: Systolic BP > 180 Last Admin: 07/13/18 03:59 Dose: 0.1 mg Dextrose/Water (Dextrose 50%) 25 gm SLOW IVP PRN PRN PRN Reason: Hypoglycemia Famotidine (Pepcid) 20 mg PO DAILY [facility] Last Admin: 07/13/18 08:49 Dose: 20 mg Fluoxetine HCl (Prozac) 40 mg PO DAILY [facility] Last Admin: 07/13/18 08:49 Dose: 40 mg Glucagon (Glucagon) 1 mg IM PRN PRN PRN Reason: Hypoglycemia Dextrose/Water (D5w) 1,000 mls @ 0 mls/hr IV .Q0M PRN PRN Reason: Hypoglycemia Ciprofloxacin/Dextrose 200 mg/ (Device) 100 mls @ 100 mls/hr IVPB Q12HR [facility] Last Admin: 07/13/18 08:48 Dose: 100 mls Metronidazole 250 mg/Miscellaneous Medication 1 each/ Device 50 mls @ 100 mls/ hr IVPB Q8HR [facility] Last Admin: 07/13/18 14:43 Dose: 50 mls Insulin Human Lispro (Humalog) 0 units SC .MODERATE SLIDING SC PRN PRN Reason: Moderate Correctional Scale Last Admin: 07/13/18 17:36 Dose: 2 unit Insulin Human Lispro (Humalog) 0 units SC .BEDTIME SLIDING SC PRN PRN Reason: Bedtime Correctional Scale Last Admin: 07/11/18 22:49 Dose: 2 units Levothyroxine Sodium (Synthroid) 100 mcg PO 0600 [facility] Last Admin: 07/13/18 06:22 Dose: 100 mcg Ondansetron HCl (Zofran) 4 mg IVP Q6H PRN PRN Reason: Nausea/Vomiting Last Admin: 07/10/18 07:22 Dose: 4 mg Saccharomyces Boulardii (Florastor) 250 mg PO DAILY [facility] Last Admin: 07/13/18 08:49 Dose: 250 mg Sodium Chloride (Flush - Normal Saline) 10 ml IVF PRN PRN PRN Reason: Saline Flush Tramadol HCl (Ultram) 50 mg PO Q6H PRN PRN Reason: Moderate Pain (4-6) Last Admin: 07/11/18 08:37 Dose: 50 mg Vancomycin HCl (First Vancomycin) 125 mg PO 0300,0900,1500,2100 [facility] Stop: 07/24/18 15:01 Last Admin: 07/13/18 14:43 Dose: 125 mg
[2018-07-13] MEDS: Sodium Chloride 0.9% 1,000 ML IV SCH (18:40)
[2018-07-13] MEDS: cloNIDine 0.1 MG TAB PO SCH (22:10)
[2018-07-13] MEDS: Atorvastatin Calcium 20 MG TAB PO SCH (22:11)
[2018-07-13] MEDS: Aspirin Chewable 81 MG TAB PO SCH (22:11)
[2018-07-14] MEDS: Vancomycin HCl 25 MG/ML Oral PO SCH ×2 (04:12→09:01)
[2018-07-14] MEDS: Levothyroxine Sodium 100 MCG TAB PO SCH (05:57)
[2018-07-14] MEDS: metroNIDAZOLE 250 MG, Admixture Fee 1 EACH in Premix Bag 1 BAG IVPB SCH (05:57)
[2018-07-14] MEDS: Ascorbic Acid 500 mg Chewable Tablet PO SCH (09:01)
[2018-07-14] MEDS: Saccharomyces boulardii 250 MG CAP PO SCH (09:02)
[2018-07-14] MEDS: Famotidine 20 MG TAB PO SCH (09:02)
[2018-07-14] MEDS: Carvedilol 6.25 MG TAB PO SCH (09:02)
[2018-07-14] MEDS: FLUoxetine HCl 20 MG CAP PO SCH (09:02)
[2018-07-14] MEDS: Allopurinol 100 MG TAB PO SCH (09:03)
[2018-07-14] MEDS: Ciprofloxacin Lactate/D5W 200 MG in Premix Bag 1 BAG IVPB SCH (09:12)
[2018-07-14 12:12] VITALS: BP 156/82; TEMP 98.4
--- NOTE | 2018-07-14 17:42 | DIS ---
DATE OF ADMISSION: 07/11/2018 DATE OF DISCHARGE: 07/14/2018 DISCHARGE DISPOSITION: Home. FOLLOWUP: 1. Follow up with primary care physician, Dr. Rufus Dior in 1 week. 2. Follow up with Dr. Jefferson Orellana in 2 weeks. 3. Follow up with Nephrology, Dr. Garzon in 2 to 3 weeks. The patient was seen on the day of discharge, denies any new complaints. No chest pain, shortness of breath, palpitations. DISCHARGE MEDICATIONS: 1. Vancomycin 125 mg every 6 hourly for 2 weeks. 2. Amlodipine 5 mg daily. 3. Carvedilol 20 mg at bedtime. 4. Calcium carbonate one tablet daily. 5. Aspirin 81 mg daily. 6. Vitamin C 750 mg b.i.d. 7. Allopurinol 300 mg daily. 8. Abatacept 250 mg every three days. 9. Vitamin D3 6000 units b.i.d. 10. Clonidine 0.1 mg at bedtime. 11. Prozac 40 mg daily. 12. Humalog insulin pump. 13. Levothyroxine 100 mcg daily. 14. Oral iron with vitamin daily. 15. Victoza mg subcu daily. 16. Multivitamin one tablet daily. 17. Pravastatin 80 mg daily. INPATIENT CONSULT: 1. Gastroenterology, Dr. Orellana. 2. Nephrology, Dr. Garzon. BRIEF HOSPITAL COURSE: The patient is a 68-year-old white female with diabetes mellitus type 2 as well as diarrhea of 1 to 2 months duration, presented to the hospital with right flank pain. Please note that the patient was on antibiotics recently for toe infection. Please refer to the history and physical for further details. The patient underwent a CT scan of the abdomen and pelvis without contrast that showed pneumatosis of the cecum without any obstructive uropathy. She was monitored in the hospital and was started on IV ciprofloxacin and Flagyl. Stool workup was positive for C diff, antigen toxin was however negative. Other stool workup including E coli, Campylobacter, and rapid parasite screen remain negative. She was started on oral vancomycin. She was seen by Gastroenterology, Dr. Orellana. Her diet was gradually advanced. She has been cleared by Gastroenterology for discharge. The patient was also found to have acute kidney injury with creatinine of 2.86, that improved with IV hydration. Angiotensin receptor isabel placed on hold per Nephrology. The patient was also seen by Nephrology, Dr. Garzon. DIAGNOSTIC TESTS: Repeat CT scan of the abdomen with contrast on 07/11/2018 showed descending sigmoid and rectal colonic thickening concerning for possible colitis. She also had diverticulosis in the descending and sigmoid colon. There was no pneumatosis seen. FINAL DIAGNOSES: 1. Abdominal pain secondary to Clostridium difficile colitis. 2. Pneumatosis coli on the CT scan without contrast on the first day. However, it was not seen on the repeat imaging. 3. Diabetes mellitus type 2, on insulin pump. 4. Acute kidney injury on chronic kidney disease stage 4. 5. Rheumatoid arthritis. 6. Anemia of chronic disease. 7. Hypothyroidism. 8. Obesity with a BMI of 34.1. 9. Coronary artery disease. 10. Dyslipidemia. 11. Thrombocytopenia. 12. Chronic hepatitis C with cirrhosis. 13. Abnormal LFTs probably secondary to cirrhosis as well as #1. 14. Metabolic acidosis. 15. Leukopenia. PLAN: Plan of care was discussed with the patient in detail. She stated understanding. Job ID: [id number]
[2018-07-16] MEDS ORDERED: cloNIDine 0.1mg/24 Hour PATCH TD SCH (09:00)
== END 2018-07-14 13:51 | disposition home or self-care (01) | DRG 372 ==
LOC: ERS 14:39 → SURG A 21:11 → OBSVTOIN 07-11 07:59
PROVIDERS: ADMIT Hospitalist; ATTEND Hospitalist
DX: A04.72 Enterocolitis due to Clostridium difficile, not specified as recurrent (principal); N17.9 Acute kidney failure, unspecified; N18.4 Chronic kidney disease, stage 4 (severe); E87.2 Acidosis; K63.89 Other specified diseases of intestine; I25.10 Atherosclerotic heart disease of native coronary artery without angina pectoris; E03.9 Hypothyroidism, unspecified; E78.5 Hyperlipidemia, unspecified; I12.9 Hypertensive chronic kidney disease with stage 1 through stage 4 chronic kidney disease, or unspecified chronic kidney disease; F41.9 Anxiety disorder, unspecified; F32.9 Major depressive disorder, single episode, unspecified; E11.22 Type 2 diabetes mellitus with diabetic chronic kidney disease; E11.649 Type 2 diabetes mellitus with hypoglycemia without coma; D63.1 Anemia in chronic kidney disease; E66.9 Obesity, unspecified; E11.40 Type 2 diabetes mellitus with diabetic neuropathy, unspecified; N20.0 Calculus of kidney; B19.20 Unspecified viral hepatitis C without hepatic coma; M06.9 Rheumatoid arthritis, unspecified; D69.6 Thrombocytopenia, unspecified; K74.60 Unspecified cirrhosis of liver; D72.819 Decreased white blood cell count, unspecified; Z90.49 Acquired absence of other specified parts of digestive tract; Z90.710 Acquired absence of both cervix and uterus; Z88.0 Allergy status to penicillin; Z88.8 Allergy status to other drugs, medicaments and biological substances; Z79.82 Long term (current) use of aspirin; Z68.34 Body mass index [BMI] 34.0-34.9, adult; Z79.4 Long term (current) use of insulin
CPT/HCPCS: 36415; 36416; 74176; 80048; 80053; 81003; 81015; 83605; 83690; 83735; 85025; 85610; 87045; 87046; 87324; 87328; 87329; 87449; 87493; 87899; 96361; 96365; J0744; J1644; J2185; J2405; J3490; S0028